=== PATIENT | male | born 1970 | race Caucasian/White ===

== ENCOUNTER 2019-05-14 10:03 | Emergency (ER) | payer OTHER, SELFPAY ==
[2019-05-14 10:17] VITALS: BP 134/97; PULSE 79; RESP 18; TEMP 36.7; O2SAT 98
[2019-05-14 10:28] VITALS: BP 134/97; PULSE 79; RESP 18; TEMP 36.9; O2SAT 98
--- NOTE | 2019-05-14 10:31 | ED.EYEPROB ---
HPI - Eye Problem General Chief complaint: Eye Problems Stated complaint: right eye red Time Seen by Provider: 05/14/19 10:15 Source: patient Limitations: no limitations History of Present Illness HPI Narrative: Camilla Farooq is a 48 yo male with no PMH who comes to the [facility] care with right eye pain after putting contact wool cleaner into his eye yesterday. He admits that he did not flush his eye well after this occurred and went ahead and put his contacts in. States his eye has been tearing since he took his contacts out last night and is having pain and swelling of the other side of the eyelid Related Data Home Medications Medication Instructions Recorded Confirmed lisinopril 20 mg DAILY 05/14/19 05/14/19 Allergies Allergy/AdvReac Type Severity Reaction Status Date / Time No Known Allergies Allergy Verified 05/14/19 10:22 Review of Systems Review of Systems: Narrative: CONSTITUTIONAL: Denies fever, chills, sweats. EYES: Denies visual changes, has redness, eyelid swelling, no discharge. ENT: Denies rhinorrhea, congestion, sore throat, otalgia. CARDIOVASCULAR: Denies chest pain, palpitations, edema. RESPIRATORY: Denies dyspnea, wheezing, cough GASTROINTESTINAL: Denies abdominal pain, nausea, vomiting, diarrhea. GENITOURINARY: Denies dysuria, hematuria, abnormal discharge SKIN: Denies rash or itching. MUSCULOSKELETAL: Denies acute back pain, joint pain, or myalgia. NEUROLOGIC: Denies numbness, or focal weakness. PSYCHIATRIC: Denies anxiety or depression. PMFSH Family History Family History (Updated 05/14/19 @ 10:34 by Leann Resendiz CNP) Other Hypertension Social History Social History (Updated 05/14/19 @ 10:36 by Leann Resendiz CNP) Smoking status: Never smoker Alcohol intake: current Gender identity (if verbalized by the patient): Male Comments At time of signature, I agree with nursing past medical, surgical, social and family history. There is no relevant family history pertinent to the presenting complaint. Exam Narrative: Exam Narrative: GENERAL: This is a well-nourished, well-developed patient, in no apparent distress. HEAD: normocephalic, atraumatic. EYES: Sclera clear/white on L, Injected on R with outer canthus lid edema Vision is grossly intact. EARS: External ears normal,Hearing grossly intact. NOSE: External nose normal with no obvious nasal discharge, nares without redness, no rhinorrhea. THROAT: Mucous membranes moist, posterior pharynx clear. NECK: Neck supple, non-tender CARDIOVASCULAR: Regular rate and rhythm without murmurs, gallops, or rubs. RESPIRATORY: Clear to auscultation. Breath sounds equal bilaterally. No wheezes, rales, or rhonchi. GASTROINTESTINAL: Abdomen soft, non-tender, SKIN: warm, intact with no suspicious lesions or rash, good texture and turgor. NEURO: awake, alert, and oriented to person, place and time. There were no obvious focal neurologic abnormalities. Steady gait EXTREMITIES: Normal range of motion. No edema. No calf tenderness. Negative Homans sign bilaterally. BACK: Nontender without deformity or crepitance. No flank tenderness. Course Course Emergency Course: Wood lamp exam Started on eye antibiotic Vital Signs Vital signs: Vital Signs Temperature 98.1 F 05/14/19 10:17 Pulse Rate 79 05/14/19 10:17 Respiratory Rate 18 05/14/19 10:17 Blood Pressure 134/97 H 05/14/19 10:17 Pulse Oximetry 98 05/14/19 10:17 Temperature 98.5 F 05/14/19 10:28 Pulse Rate 79 05/14/19 10:28 Respiratory Rate 18 05/14/19 10:28 Blood Pressure 134/97 H 05/14/19 10:28 Pulse Oximetry 98 05/14/19 10:28 Procedures Other Procedure Procedure 1: Other Procedure: So lamp with tetracaine and fluorescein stain - small corneal abrasion lateral to iris. MDM - Eye Problem Differential Diagnosis Differential diagnosis: Likely corneal abrasion, periorbital cellulitis and corneal ulcer Discharge Plan Discharge Clin
== END 2019-05-14 10:47 | disposition home or self-care (01) ==
PROVIDERS: Emergency Provider Nurse Practitioner; PCP Family Medicine
DX: S05.01XA Injury of conjunctiva and corneal abrasion without foreign body, right eye, initial encounter (principal); X58.XXXA Exposure to other specified factors, initial encounter; I10 Essential (primary) hypertension
CPT/HCPCS: 99203; A9270; G0463

== ENCOUNTER 2019-08-10 11:44 | Emergency (ER) | payer OTHER, SELFPAY ==
--- NOTE | ~2019-08-10 | XR_ITS ---
XR toe 1st RT min 2V 08/10/2019 12:24 Indication: Injury to the right great toe Procedure: 4 views right first toe Comparison: 03/16/2006 Findings: There is a nondisplaced tuft fracture right first distal phalanx. Soft tissue swelling. Mil d degenerative changes of the first IP joint. Lisfranc joint intact.. Impression: 1: Nondisplaced tuft fracture right first distal phalanx. Reviewed, dictated and finalized at location A. Impression: 1: Nondisplaced tuft fracture right first distal phalanx.
[2019-08-10 11:52] VITALS: BP 132/90; PULSE 86; RESP 18; TEMP 36.9; O2SAT 97
--- NOTE | 2019-08-10 12:05 | ED.GENADULT ---
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 Patient presents per private vehicle in no distress and has not taken anything for his symptoms. Patient denies any radicular symptoms or paresthesias Related Data Home Medications Medication Instructions Recorded Confirmed lisinopril 20 mg DAILY 05/14/19 05/14/19 Allergies Allergy/AdvReac Type Severity Reaction Status Date / Time aspirin Allergy Intermediate NAUSEA Verified 08/10/19 11:56 rosuvastatin Allergy Unknown Unknown Verified 08/10/19 11:56 Review of Systems Review of Systems: Narrative: CONSTITUTIONAL: Denies fever, chills, or sweats. SKIN: Positive for laceration. 2 cm laceration along the medial aspect of the distal right great toe partially involving the lateral nail bed distally MUSCULOSKELETAL: Positive for right toe pain NEUROLOGIC: Denies numbness, or weakness. PMFSH Social History Social History Smoking status: Never smoker Alcohol intake: current Gender identity (if verbalized by the patient): Male Exam Narrative: Exam Narrative: GENERAL: Well-appearing, well-nourished, and in no acute distress. HEAD: Normocephalic, atraumatic. EYES: PERRLA and EOMI. ENT: Nares clear, no rhinorrhea or epistaxis. Mucous membranes moist. EXTREMITIES: Normal range of motion. No edema. 2 cm laceration of the distal right great toe located medially extending from the distal aspect of the dorsal surface along the medial aspect of the nailbed distally SKIN: Warm, dry, no rash. NEURO: No focal deficits. Alert and oriented x3. Neurovascularly intact. Capillary refill less than 2 seconds PSYCH: Normal mood and affect. Course Course Emergency Course: Patient in the room in no distress aware of case findings treatment plan and diagnosis agreeing to follow-up as directed. Patient will be followed by orthopedic surgery. Post closure of the wound patient was placed in postop shoe with crutches Consultations Consultation #1: Spoke with orthopedic surgery Dr. crow who is agreed to follow the case Vital Signs Vital signs: Vital Signs Temperature 98.4 F 08/10/19 11:52 Pulse Rate 86 08/10/19 11:52 Respiratory Rate 18 08/10/19 11:52 Blood Pressure 132/90 08/10/19 11:52 Pulse Oximetry 97 08/10/19 11:52 Temperature 98.4 F 08/10/19 11:52 Pulse Rate 86 08/10/19 11:52 Respiratory Rate 18 08/10/19 11:52 Blood Pressure 132/90 08/10/19 11:52 Pulse Oximetry 97 08/10/19 11:52 Procedures Laceration Laceration 1: Date: 08/10/19 Time: 14:32 Site: lower extremity Side (If applicable): right Size (cm): 2 Description: linear Depth: simple, single layer Local Anesthetic: lidocaine 1% Pre-repair: wound explored, irrigated and irrigated extensively ====== Skin Level ====== Skin layer closed with: vicryl Size (cm): 4-0 Number of sutures: 5 Technique: simple, interrupted ====== Subcutaneous Layer ====== ====== Muscle Layer ====== ====== Tendon Layer ====== Medical Decision Making MDM Narrative Medical decision making narrative: Patients injury or pain is consistent with musculoskeletal etiology. No signs of neurological or vascular compromise on exam. Compartments and tisues are soft without signs of compartment syndrome. Pain is felt appropriate for further evaluation on an outpatient basis. Patient's wound was closed in the emergency
[2019-08-10] MEDS: ceFAZolin SODIUM 1 GM VIAL IM (12:11)
[2019-08-10] MEDS: WATER, STERILE FOR INJECTION 10 ML VIAL XX (12:12)
[2019-08-10] MEDS: TETANUS,DIPHTHERIA,AC PERTUSSIS ADULT (0.5 ML) BOOSTRIX IM (12:45)
[2019-08-10 14:50] VITALS: BP 141/109; PULSE 76; RESP 16; TEMP 36.2; O2SAT 97
== END 2019-08-10 14:54 | disposition home or self-care (01) ==
PROVIDERS: Emergency Provider Emergency Medicine; PCP Family Medicine
DX: S92.424B Nondisplaced fracture of distal phalanx of right great toe, initial encounter for open fracture (principal); W28.XXXA Contact with powered lawn mower, initial encounter; Z23 Encounter for immunization
CPT/HCPCS: 12001; 73660; 90471; 90715; 96372; 99284; A9270; J0690

== ENCOUNTER 2019-12-08 18:58 | Inpatient (IN) | payer OTHER, SELFPAY ==
[2019-12-08 18:59] VITALS: BP 108/66; PULSE 104; RESP 18; TEMP 36.1; O2SAT 98
--- NOTE | 2019-12-08 19:30 | ED.GENADULT ---
HPI - General Adult General Chief complaint: Unspecified Stated complaint: heat exhaustion Time Seen by Provider: 12/08/19 19:06 History of Present Illness HPI narrative: Patient is a 49-year-old male who presents the ER with muscle cramping. Began today. Worsens with any type of movement. Believes it is related to heat exposure. 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 He tries stay hydrated. He has had this happen previously and improved with IV fluid. Reports significant spasms of the hands and fingers as well. No alleviating factors at this time. Related Data Home Medications Medication Instructions Recorded Confirmed lisinopril 20 mg DAILY 05/14/19 09/13/19 Allergies Allergy/AdvReac Type Severity Reaction Status Date / Time aspirin AdvReac Intermediate NAUSEA Verified 12/08/19 20:59 Review of Systems Review of Systems: All systems reviewed & are unremarkable except as noted in HPI and below Constitutional: Constitutional: Denies chills, Denies fever(s) and Denies weakness ENT: Denies nasal congestion and Denies sore throat Respiratory: Respiratory: Denies cough, Denies dyspnea and Denies wheezing Gastrointestinal: Gastrointestinal: Denies abdominal pain, Denies nausea and Denies vomiting Musculoskeletal: Musculoskeletal: Denies myalgias and Reports muscle cramps PMFSH Past Medical History Medical History (Updated 12/08/19 @ 20:59 by Edgard Robles MD) Anxiety Arthritis Left hip impingement syndrome Vision abnormalities Surgical History Surgical History History of appendectomy History of carpal tunnel release Social History Social History Smoking status: Never smoker Alcohol intake: current Drinks per week: 1 Additional occupation/education comments: [employer] Gender identity (if verbalized by the patient): Male Exam Narrative: Exam Narrative: GENERAL: Well-appearing, well-nourished, and in no acute distress. HEAD: Normocephalic, atraumatic. CHEST: Clear to auscultation. No respiratory distress. HEART: Regular rate and rhythm. Normal peripheral pulses. ABDOMEN: Soft, nontender, nondistended. EXTREMITIES: Normal range of motion. No edema. Begins cramping when going from laying to sitting and when going from sitting to standing. SKIN: Warm, dry, no rash. NEURO: Alert and oriented x3. PSYCH: Normal mood and affect. Course Course Emergency Course: Cramping improved with Valium. Informed results. Admit to hospitalist service. Vital Signs Vital signs: Vital Signs Temperature 97.0 F L 12/08/19 18:59 Pulse Rate 104 H 12/08/19 18:59 Respiratory Rate 18 12/08/19 18:59 Blood Pressure 108/66 12/08/19 18:59 Pulse Oximetry 98 12/08/19 18:59 Temperature 97.0 F L 12/08/19 18:59 Pulse Rate 97 12/08/19 20:26 Respiratory Rate 12 12/08/19 20:26 Blood Pressure 129/93 H 12/08/19 20:26 Pulse Oximetry 100 12/08/19 20:26 Medical Decision Making Vital Signs Vital Signs: Vital Signs Temperature 97.0 F L 12/08/19 18:59 Pulse Rate 104 H 12/08/19 18:59 Respiratory Rate 18 12/08/19 18:59 Blood Pressure 108/66 12/08/19 18:59 Pulse Oximetry 98 12/08/19 18:59 Temperature 97.0 F L 12/08/19 18:59 Pulse Rate 97 12/08/19 20:26 Respiratory Rate 12 12/08/19 20:26 Blood Pressure 129/93 H 12/08/19 20:26 Pulse Oximetry 100 12/08/19 20:26 Lab Data Result diagrams: 12/08/19 19:40 12/08/19 19:40 Labs: Lab Results 12/08/19 12/08/19 Range/Units 19:40 19:40 WBC 14.5 H (4.5-10.0) K/mm3 RBC 4.93 (4.6-6.20) M/mm3 Hgb 15.1 (14.0-18.0) g/dL Hct 43.6 (42.0-52.0) % MCV 88.4 (80-100) fl MCH 30.6 (26-34) pg MCHC 34.6 (32-36) g/dl RDW 13.1 (11.5-14.5) % Plt Count 313 (150-375) k/mm3 MPV 9.4 (7.4-10.4) fl Immature Gran %
[2019-12-08] MEDS: SODIUM CHLORIDE 0.9% IV 1,000 ML 999 ML IV CONT ×3 (19:39→21:10)
[2019-12-08 19:47] LABS: Basophils Absolute Auto 0.1 K/mm3 (0.0-0.1); Basophils Percent Auto 0.4 % (0.2-1.2); Eosinophils Percent Auto 0.1 % (0-4.4); Hematocrit 43.6 % (42.0-52.0); Hemoglobin 15.1 g/dL (14.0-18.0); Immature Granulocyte Absolute 0.07 K/mm3 (0.00-0.031); Immature Granulocyte Percent A 0.5 % (0-0.5); Lymphocytes Absolute Auto 1.66 K/mm3 (0.9-3.2); Lymphocytes Percent Auto 11.5 % (18.3-44.2); Mean Corpuscular HGB Conc 34.6 g/dl (32-36); Mean Corpuscular Hemoglobin 30.6 pg (26-34); Mean Corpuscular Volume 88.4 fl (80-100); Mean Platelet Volume 9.4 fl (7.4-10.4); Monocytes Absolute Auto 1.3 K/mm3 (0.1-0.6); Monocytes Percent Auto 8.7 % (2.6-8.5); Neutrophils Absolute Auto 11.4 K/mm3 (1.3-6.7); Neutrophils Percent Auto 78.8 % (45.5-73.1); Platelet Count Result 313 k/mm3 (150-375); Red Blood Count 4.93 M/mm3 (4.6-6.20); Red Cell Distribution Width 13.1 % (11.5-14.5); White Blood Count 14.5 K/mm3 (4.5-10.0)
[2019-12-08 19:58] LABS: Anion Gap 13 mmol/L (8-16); Blood Urea Nitrogen 22 mg/dL (9-20); Calcium 10.1 mg/dL (8.4-10.2); Carbon Dioxide 21 mmol/L (22-30); Chloride 98 mmol/L (98-107); Creatine Kinase 1091 U/L (55-170); Estimated CRCL calculation 47 ml/min; Estimated Glomerular Filt Rate 29; Glucose 106 mg/dL (75-110); Magnesium 2.2 mg/dL (1.6-2.3); Potassium 5.1 mmol/L (3.4-5.0); Sodium 132 mmol/L (137-145)
[2019-12-08 20:26] VITALS: BP 129/93; PULSE 97; RESP 12; O2SAT 100
[2019-12-08 21:52] VITALS: BP 137/88; PULSE 88; RESP 19; O2SAT 99
[2019-12-08 22:00] VITALS: BP 128/80; PULSE 97; RESP 20; TEMP 36.7; O2SAT 87
--- NOTE | 2019-12-08 22:00 | PC.NURSE ---
This patient, Denzel Farooq, was admitted to 2 Medical Room 251-. Patient/family oriented to hospital policies and general routines including ID bracelet, bed and alarms, visiting hours, pain management, procedures, bathroom and other care routines, personal items, smoking policy, room service/diet, and visiting hours. Valuables list has been completed. Information on how to activate the Rapid Response Team has been discussed. Patient/Family are encouraged to report perceived risks to care and to ask questions if they do not understand what they are told or what they should do.
[2019-12-08] MEDS: SODIUM CHLORIDE 0.9% IV 1,000 ML 150 ML IV CONT (22:27)
[2019-12-08 23:23] VITALS: BMI 34.1
[2019-12-09 04:00] VITALS: BP 135/85; PULSE 80; RESP 18; TEMP 36.6; O2SAT 100
[2019-12-09] MEDS: SODIUM CHLORIDE 0.9% IV 1,000 ML 150 ML IV CONT ×3 (05:03→18:44)
[2019-12-09 06:01] LABS: Hematocrit 39.2 % (42.0-52.0); Hemoglobin 13.3 g/dL (14.0-18.0); Mean Corpuscular HGB Conc 33.9 g/dl (32-36); Mean Corpuscular Hemoglobin 30.6 pg (26-34); Mean Corpuscular Volume 90.1 fl (80-100); Mean Platelet Volume 9.6 fl (7.4-10.4); Platelet Count Result 241 k/mm3 (150-375); Red Blood Count 4.35 M/mm3 (4.6-6.20); Red Cell Distribution Width 13.1 % (11.5-14.5); White Blood Count 8.2 K/mm3 (4.5-10.0)
[2019-12-09 08:04] LABS: Anion Gap 6 mmol/L (8-16); Blood Urea Nitrogen 16 mg/dL (9-20); Calcium 8.2 mg/dL (8.4-10.2); Carbon Dioxide 24 mmol/L (22-30); Chloride 105 mmol/L (98-107); Creatine Kinase 1013 U/L (55-170); Estimated CRCL calculation 99 ml/min; Estimated Glomerular Filt Rate > 60; Glucose 99 mg/dL (75-110); Potassium 4.1 mmol/L (3.4-5.0); Sodium 135 mmol/L (137-145)
--- NOTE | 2019-12-09 10:22 | PM.IMHP ---
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 Symptoms started Friday and progressed to the point that he could barely ambulate yesterday due to severe pain. 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 He reports that he tried to stay hydrated yesterday and drank four jugs of water but had very minimal urine output and only urinated dark urine one time. He endorsed significant fatigue as well. Initial workup in the emergency department revealed WBC 14,500, Hb 15.1, Hct 43.6, platelets 313, sodium 132, potassium 5.1, chloride 98, CO2 21, BUN 22, Cr 2.4, magnesium 2.2, calcium 10.1, glucose 106, and creatine kinase 1091. He was treated with IV fluids and admitted to the hospitalist service for further treatment of rhabdomyolysis. He reports that he is feeling much better today. He reports that his spasms have resolved. At this time, he has diffuse muscle aching. He has no other complaints. He is not on a statin and reports that this was previously discontinued. He reports marijuana use but denies other illicit substance use. He denies snake and insect bites and has no other known toxin exposure. He denies recent infection. He denies trauma. He reports that his other episodes of rhabdomyolysis were attributed to dehydration and were associated with working in the heat. He has no other complaints. Review of Systems Review of Systems: Narrative: Constitutional: Denies fever, chills, and appetite change. Reports fatigue with onset of other sx which is improving. Eyes: Denies vision change. No additional eye complaints. ENT: Denies change in hearing, nasal congestion, dysphagia, odynophagia, and sore throat. Cardiovascular: Denies palpitations and chest pain. Denies dyspnea on exertion. Respiratory: Denies cough and shortness of breath. Gastrointestinal: Denies abdominal pain and vomiting. Reports nausea yesterday which has resolved. Genitourinary: Denies dysuria, frequency, urgency, and hesitancy. Musculoskeletal: Reports diffuse muscle aches. Spasms previously have resolved. Skin: Denies lesions and wounds. Neurologic: Denies focal weakness, paresthesias, confusion, headache, and speech change. Psychiatric: Denies mood change. Reports anxiety and depression but is not on medication. Hematologic: Denies easy bruising and bleeding. All systems reviewed & are unremarkable except as noted in HPI and below PMFSH Past Medical History Medical History (Updated 12/09/19 @ 10:42 by Ivania Fields PA-C) Anxiety Arthritis Depression HTN (hypertension) Left hip impingement syndrome Rhabdomyolysis Vision abnormalities Surgical History Surgical History History of appendectomy History of carpal tunnel release History of mandibular surgery Family History Family History Grandparent Cerebrovascular accident Congestive heart failure Grandparent Chronic obstructive pulmonary disease Congestive heart failure Diabetes mellitus Father Hypertension Social History Social History (Updated 12/09/19 @ 10:39 by Ivania Fields PA-C) Social History: Mr. Farooq lives at home in [place] with his and two daughters. 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 He smokes marijuana approximately 3-4x per week and reports that he uses this for pain relief. He reports alcohol use 1-2x per year. He denies other illicit substance and tobacco use. He wishes to be a full code and has designated his , Felipa Farooq, as his designated surrogate decision maker. Smoking status: Never smoker Alcohol intake: never Drinks pe
[2019-12-09 13:31] VITALS: BP 132/78; PULSE 86; RESP 16; TEMP 36.4; O2SAT 98
[2019-12-09] MEDS: ENOXAPARIN 40 MG/0.4 ML SYRINGE SUB-Q (20:06)
[2019-12-09 22:00] VITALS: BP 140/86; PULSE 73; RESP 20; TEMP 36.2; O2SAT 98
[2019-12-10] MEDS: SODIUM CHLORIDE 0.9% IV 1,000 ML 150 ML IV CONT ×2 (04:24→11:16)
[2019-12-10 06:00] VITALS: BP 126/73; PULSE 67; RESP 20; TEMP 36.7; O2SAT 98
[2019-12-10 06:16] LABS: Potassium 4.2 mmol/L (3.4-5.0)
[2019-12-10 07:23] LABS: Alanine Aminotransferase 28 U/L (4-50); Albumin Level 3.4 g/dL (3.5-5.1); Alkaline Phosphatase 42 U/L (38-126); Anion Gap 5 mmol/L (8-16); Aspartate Amino Transferase 33 U/L (17-59); Bilirubin,Total 0.3 mg/dL (0.2-1.3); Blood Urea Nitrogen 12 mg/dL (9-20); Calcium 7.9 mg/dL (8.4-10.2); Carbon Dioxide 24 mmol/L (22-30); Chloride 108 mmol/L (98-107); Creatine Kinase 636 U/L (55-170); Estimated CRCL calculation 133 ml/min; Estimated Glomerular Filt Rate > 60; Glucose 99 mg/dL (75-110); Sodium 137 mmol/L (137-145)
[2019-12-10 07:56] LABS: Erythrocyte Sedimentation Rate 8 mm/hr (0-20)
--- NOTE | 2019-12-10 12:13 | PM.IMPN ---
Progress Note: A&P Assessment and Plan (1) Rhabdomyolysis: Code(s): M62.82 - Rhabdomyolysis Status: Acute Assessment and Plan: The patient reports a hx of rhabdomyolysis 4x in the past 10 years. He reports that prior episodes were non-traumatic and associated with exertion/heat exhaustion. 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 CK was elevated at 1080 at admission and has improved to 636 with IV hydration. Check TSH. Labs were ordered to evaluate for metabolic myopathies due to recurrence (aldolase, NAVDEEP, EMMANUEL-1Ab, FRONT END SOFTWARE ENGINEER Ab). Continue IV fluid rehydration and analgesics PRN for pain. Repeat CK tomorrow. (2) Acute kidney injury: Code(s): N17.9 - Acute kidney failure, unspecified Status: Resolved Assessment and Plan: Resolved. Cr at admission was 2.4, likely secondary to rhabdomyolysis. Cr has normalized to 0.8. (3) HTN (hypertension): Code(s): I10 - Essential (primary) hypertension Status: Chronic Assessment and Plan: Blood pressures were reviewed and are well-controlled. Lisinopril is on hold at this time due to ROB. Plan to resume lisinopril. Continue to monitor. (4) Hyperkalemia: Code(s): E87.5 - Hyperkalemia Status: Resolved Assessment and Plan: Potassium was 5.1 at admission. Hyperkalemia has resolved. This is secondary to ROB which has resolved. Continue to monitor. (5) Hyponatremia: Code(s): E87.1 - Hypo-osmolality and hyponatremia Status: Resolved Assessment and Plan: Resolved. Sodium was 132 at admission and has improved to 137. This was likely secondary to rhabdomyolysis/dehydration. Continue to monitor. Subjective Date/time seen: 12/10/19 12:13 Interval history: Mr. Farooq is seen in follow-up for rhabdomyolysis. He reports improvement in his muscle aches. 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 He has a good appetite. He denies nausea and vomiting. He denies shortness of breath and chest pain. He has no other concerns. Review of Systems Review of Systems: All systems reviewed & are unremarkable except as noted in HPI and below Exam Narrative: Exam Narrative: General: Pleasant, cooperative, well-developed 49 y.o. male lying in the semi-alvarez position in bed in no acute distress. HEENT: Normocephalic and atraumatic. Sclera anicteric. Right conjunctivae with pinguecula. EOMI. Moist mucous membranes. Neck: Supple without lymphadenopathy or masses. Cardiac: Regular rate and rhythm. S1 and S2 normal. Lungs: Lungs are clear to auscultation bilaterally. Abdomen: Bowel sounds are normoactive. Abdomen is soft, non-distended, and non-tender. Musculoskeletal: No joint inflammation. No spasms appreciated or signs of compartment syndrome. Extremities: Lower extremities are non-edematous. Renee sign is negative. DP and PT are 2+ bilaterally. Neurological: Alert. Exam is non-focal to casual conversation. Speech is clear. Skin: Warm and dry. No lesions or eruptions. Psychiatric: Judgment and insight intact. Pleasant mood and appropriate affect. Objective Data Vital Signs Vital Signs: Vital Signs - 24 hr 12/09/19 13:31 12/09/19 22:00 12/10/19 06:00 Temperature 97.6 F 97.2 F L 98.0 F Pulse Rate 86 73 67 Respiratory Rate 16 20 20 Blood Pressure 132/78 140/86 126/73 Pulse Oximetry 98 98 98 Intake/Output Intake/Output: Intake & Output 12/07/19 12/08/19 12/09/19 12/10/19 23:59 23:59 23:59 23:59 Intake Total 1999 5502 3090 Output Total 1875 1100 Balance 1999 3695 1989 Meds/Results Medications: Active Medications Generic Name Dose Route Start Last Admin Trade Name Freq PRN Reason Stop Dose Admin Acetaminophen 650 mg 12/08/19 20:52 Tylenol Tablet PO Q4H PRN Mild Pain (1-3) or Fever Hydrocodone Bitart/Acetaminophen 1 tab 12/08/19 20:52 12/09/19 20:12 [place] 5-325 Mg PO 1 tab Q4H PRN Adminis
[2019-12-10 14:00] VITALS: BP 147/94; PULSE 75; RESP 18; TEMP 36.2; O2SAT 99
[2019-12-10] MEDS: LIDOCAINE 5% PATCH 1 PATCH TRANSDERM (17:40)
[2019-12-10] MEDS: SODIUM CHLORIDE 0.9% IV 1,000 ML 125 ML IV CONT (20:12)
[2019-12-10] MEDS: ENOXAPARIN 40 MG/0.4 ML SYRINGE SUB-Q (20:13)
[2019-12-10 22:00] VITALS: BP 149/84; PULSE 73; RESP 18; TEMP 36.4; O2SAT 100
[2019-12-11 05:54] VITALS: BP 147/83; PULSE 64; RESP 16; TEMP 36.2; O2SAT 99
[2019-12-11 06:07] LABS: Anion Gap 6 mmol/L (8-16); Blood Urea Nitrogen 7 mg/dL (9-20); Calcium 8.3 mg/dL (8.4-10.2); Carbon Dioxide 23 mmol/L (22-30); Chloride 108 mmol/L (98-107); Creatine Kinase 397 U/L (55-170); Estimated CRCL calculation 151 ml/min; Estimated Glomerular Filt Rate > 60; Glucose 100 mg/dL (75-110); Sodium 137 mmol/L (137-145)
[2019-12-11] MEDS: SODIUM CHLORIDE 0.9% IV 1,000 ML 125 ML IV CONT (06:07)
[2019-12-11] MEDS: lisinopriL 20 MG TABLET PO (08:15)
--- NOTE | 2019-12-11 09:22 | PM.DS ---
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 He works in the heat and was very dehydrated with minimal urine output. Initial workup in the emergency department revealed WBC 14,500, Hb 15.1, Hct 43.6, platelets 313, sodium 132, potassium 5.1, chloride 98, CO2 21, BUN 22, Cr 2.4, magnesium 2.2, calcium 10.1, glucose 106, and creatine kinase elevated at 1091. The patient reports a hx of rhabdomyolysis 4x in the past 10 years. He reports that prior episodes were non-traumatic and associated with exertion/heat exhaustion. 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 CK was elevated at 1080 at admission and has improved to 397 with IV fluid hydration. TSH was normal. Aldolase, NAVDEEP, Treasure-1 Ab and FUR REMODELER Ab were ordered to evaluate for possible metabolic myopathy due to hx of recurrence and are pending. He had hyperkalemia initially due to ROB. His ROB resolved with IV fluid rehydration with Cr 0.7 the day of discharge. Hyponatremia was felt to be due to hypovolemia and resolved with IV fluid hydration. His myalgias and spasms resolved and he is feeling much better. He requests to go home. I have discussed the importance of avoiding heat exhaustion and staying hydrated. I have encouraged him to rest for a few days before returning to work. He was discharged in stable condition on the morning of 12/11/19. (2) Acute kidney injury: Code(s): N17.9 - Acute kidney failure, unspecified Status: Resolved Assessment and Plan: Resolved. Cr at admission was 2.4, likely secondary rhabdomyolysis/dehydration. Cr normalized and is 0.7 today. (3) HTN (hypertension): Code(s): I10 - Essential (primary) hypertension Status: Chronic Assessment and Plan: Blood pressures were reviewed and were well-controlled. Lisinopril was continued. (4) Hyperkalemia: Code(s): E87.5 - Hyperkalemia Status: Resolved Assessment and Plan: Resolved. Potassium was 5.1 at admission. This is secondary to ROB which has resolved. (5) Hyponatremia: Code(s): E87.1 - Hypo-osmolality and hyponatremia Status: Resolved Assessment and Plan: Resolved. Sodium was 132 at admission and normalized following IV fluid rehydration. This is likely secondary to hypovolemia from rhabdomyolysis and dehydration. DS: Summary Time Spent with Patient Time attestation: Total time spent providing and/or coordinating discharge services: Exam Narrative: Exam Narrative: Vitals at presentation: Temp Pulse Resp BP Pulse Ox 97.0 F L 104 H 18 108/66 98 12/08/19 18:59 12/08/19 18:59 12/08/19 18:59 12/08/19 18:59 12/08/19 18:59 Vitals at discharge: Temp Pulse Resp BP Pulse Ox 97.1 F L 64 16 147/83 H 99 12/11/19 05:54 12/11/19 05:54 12/11/19 05:54 12/11/19 05:54 12/11/19 05:54 General: Pleasant and cooperative, well-developed 49 y.o. male lying in the semi-recumbent position in bed in no acute distress. HEENT: Normocephalic and atraumatic. EOMI. Oral mucosa moist. Neck: Supple. Cardiac: RRR. S1 and S2 normal. Lungs: Lungs clear to auscultation bilaterally. Abdomen: Bowel sounds are normoactive. Abdomen is soft, non-distended, and non-tender. Extremities: Lower extremiti
[2019-12-12 09:32] LABS: JO 1 Antibody <1.0
[2019-12-15 22:33] LABS: RNP Antibodies <1.0
[2019-12-16 01:04] LABS: Aldolase 5.7 U/L (<=8.1)
== END 2019-12-11 10:16 | disposition home or self-care (01) | DRG 558 ==
LOC: ANHED 21:00 → ANH2MED 22:06
PROVIDERS: Physician Assistant; Admitting Provider Internal Medicine; Emergency Provider Emergency Medicine; PCP Family Medicine; Visit Provider Internal Medicine
DX: M62.82 Rhabdomyolysis (principal); N17.9 Acute kidney failure, unspecified; E87.1 Hypo-osmolality and hyponatremia; M19.90 Unspecified osteoarthritis, unspecified site; I10 Essential (primary) hypertension; E86.0 Dehydration; E87.5 Hyperkalemia; F41.9 Anxiety disorder, unspecified; M25.852 Other specified joint disorders, left hip; X30.XXXA Exposure to excessive natural heat, initial encounter
CPT/HCPCS: 36415; 80048; 80053; 82085; 82550; 83735; 84443; 85025; 85027; 85652; 86038; 86235; 96361; 96374; 99285; A9270; J1650; J3360; J7030

== ENCOUNTER 2020-06-22 08:07 | Outpatient (CLI) | payer OTHER, SELFPAY ==
--- NOTE | 2020-06-22 | ECHO_ITS ---
Patient Info Name: Denzel Farooq Age: 50 years : 1970 Gender: Male Ht: 73 in Wt: 275 lbs BSA: 2.58 m2 HR: 58 bpm BP: 133 / 90 mmHg Heart Rhythm: Sinus Rhythm Technical Quality: Good Exam Date: 06/22/2020 8:56 AM Exam Location: [facility] Patient Status: Outpatient Admit Date: 06/22/2020 Staff Ordering Physician: Deuce, Yulissa Reddy NP Steam Shovelman: Miesha Price RDCS Attending Provider: GeorgeYulissa NP Referring Physician: Deuce ROBLERO; Exam Type: CA echo doppler color flow Study Info Indications - family hx/o congenital hrt dz Complete two-dimensional, color flow and Doppler transthoracic echocardiogram is performed. Summary 1. Complete two-dimensional, color flow and Doppler transthoracic echocardiogram is performed. 2. Left ventricular chamber dimension is mildly enlarged. 3. Left ventricular systolic function is mildly reduced, estimated at 45-50%. 4. There is mildly increased left ventricular wall thickness. 5. The left ventricular diastolic function is grade I diastolic dysfunction. 6. Left atrial chamber dimension is mildly enlarged. 7. There is mild tricuspid valve regurgitation. Left Ventricle Left ventricular chamber dimension is mildly enlarged. Left ventricular systolic function is mildly reduced, estimated at 45-50%. There is mildly increased left ventricular wall thickness. The left ventricular diastolic function is grade I diastolic dysfunction. Right Ventricle Right ventricular chamber dimension is normal. Right ventricular systolic function is normal. Left Atria Left atrial chamber dimension is mildly enlarged. Right Atria Right atrial chamber dimension is normal. Atrial Septum Intact interatrial septum visualized by color flow imaging. Aortic Valve The aortic valve is trileaflet. There is mild aortic valve sclerosis. There is no aortic valve stenosis. There is trace aortic valve regurgitation. Pulmonic Valve The pulmonic valve is normal. There is no pulmonic valve stenosis. There is trace pulmonic regurgitation. Mitral Valve The mitral valve has normal leaflets. There is no mitral valve stenosis. There is trace mitral valve regurgitation. Tricuspid Valve The tricuspid valve leaflets are normal. There is no significant tricuspid valve stenosis. There is mild tricuspid valve regurgitation. No pulmonary hypertension, estimated pulmonary arterial systolic pressure is 17 mmHg. Pericardium/Pleural The pericardium appears normal. There is no pericardial effusion. Inferior Vena Cava Normal inferior vena cava with >50% collapse upon inspiration consistent with normal right atrial pressure, 10 mmHg. Aorta The aortic root size at the sinus of Valsalva is normal. The prox ascending aorta size is normal. Left Ventricular Outflow Tract Name Value Normal LVOT 2D LVOT Diameter 2.2 cm LVOT Doppler LVOT Peak Gradient 4 mmHg LVOT Mean Gradient 3 mmHg LVOT VTI 22 cm LVOT VTI/AV VTI Ratio 0.7
--- NOTE | ~2020-06-22 | XR_ITS ---
EXAMINATION: XR shoulder LT min 2V DATE: 06/22/2020 09:40 INDICATION: Chronic left shoulder pain. TECHNIQUE: 4 views of left shoulder were obtained. COMPARISON: None. FINDINGS: Bone alignment is normal. There is an old healed fracture of distal clavicle. Glenohumeral joint is normal. There is mild acromioclavicular joint osteoarthritis. IMPRESSION: 1. Mild acromioclavicular joint osteoarthritis. Reviewed, dictated and finalized at location A. Y LEVEL PROJECT ENGINEER
--- NOTE | ~2020-06-22 | XR_ITS ---
EXAMINATION: XR hip BI wo pelvis DATE: 06/22/2020 09:40 INDICATION: Bilateral hip pain. TECHNIQUE: 2 views of right hip and 2 views of left hip were obtained. COMPARISON: Pelvis and left hip radiographs 09/13/2019 FINDINGS: Bone alignment is normal. No fracture. Joint spaces are normal. IMPRESSION: 1. No significant arthritis. Reviewed, dictated and finalized at location A. MACIST ASSISTANT
== END 2020-06-22 08:08 | disposition home or self-care (01) ==
PROVIDERS: PCP Family Medicine; Visit Provider Nurse Practitioner
DX: Z82.79 Family history of other congenital malformations, deformations and chromosomal abnormalities (principal); M19.012 Primary osteoarthritis, left shoulder
CPT/HCPCS: 73030; 73521; 93306

== ENCOUNTER 2020-12-06 09:51 | Emergency (ER) | payer OTHER, SELFPAY ==
[2020-12-06] VITALS (9 sets, daily range): BP systolic 129–146; BP diastolic 76–91; PULSE 57–71; RESP 18–29; TEMP 36.4; O2SAT 90–100
--- NOTE | 2020-12-06 09:58 | ED.CHESTPAIN ---
HPI - Chest Pain General Chief Complaint: Unspecified Stated Complaint: Dehydration Time Seen by Provider: 12/06/20 09:52 Source: RN notes reviewed History of Present Illness HPI narrative: Patient presents to emergency department from home for dehydration. 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 he states that proximally 1 year ago he was admitted for 4 days for rhabdomyolysis and dehydration states that last night he began to feel diffuse cramping throughout his body which was similar to his previous symptom and felt he should come in for further evaluation he states he has been trying to hydrate he states today he feels sore but has no definitive cramping he denies any fevers or chills, chest pain, shortness of breath abdominal pain nausea vomiting or any other symptoms states he has been taking his medications as prescribed Related Data Home Medications Medication Instructions Recorded Confirmed meloxicam [Mobic] 15 mg PO DAILY 12/08/19 12/08/19 losartan 100 mg tablet 100 mg PO DAILY 06/29/20 metoprolol succinate 25 mg 25 mg PO DAILY 06/29/20 tablet,extended release 24 hr tramadol 50 mg tablet 50 mg PO Q6H PRN 06/29/20 multivit,calc,mins-folic 240 1 tablet PO DAILY 07/18/20 mcg-vit K1 30 mcg-lycopene 300 mcg tablet Allergies Allergy/AdvReac Type Severity Reaction Status Date / Time aspirin AdvReac Intermediate NAUSEA Verified 12/06/20 09:59 Review of Systems Review of Systems: Gen.: Denies fevers or chills ENT: Denies congestion Respiratory: Denies shortness of breath or cough CV: Denies chest pain or palpitations GI: Denies abdominal pain nausea, emesis or diarrhea Musculoskeletal: Reports muscle cramping Neuro: Denies numbness, tingling, weakness or focal weakness Skin: Denies rash Except as documented, all other systems reviewed and negative [facility] Past Medical History Medical History Anxiety Arthritis Depression HTN (hypertension) Left hip impingement syndrome Rhabdomyolysis Vision abnormalities Surgical History Surgical History History of appendectomy History of carpal tunnel release History of mandibular surgery Family History Family History Grandparent Cerebrovascular accident Congestive heart failure Grandparent Chronic obstructive pulmonary disease Congestive heart failure Diabetes mellitus Father Hypertension Social History Social History Social History: Mr. Farooq lives at home in [place] with his and two daughters. 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 He smokes marijuana approximately 3-4x per week and reports that he uses this for pain relief. He reports alcohol use 1-2x per year. He denies other illicit substance and tobacco use. He wishes to be a full code and has designated his , Felipa Farooq, as his designated surrogate decision maker. 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 CARDIOVASCULAR: Regular rate and rhythm without murmurs rubs or gallops. ABDOMINAL: Soft, nontender, nondistended, no rebound or guarding MUSCULOSKELETAl: Moves all extremities. No clubbing, cyanosis or edema. NEURO: Awake and alert. Following commands, speech normal, no focal deficits SKIN:: Warm, dry. No rashes lesions or abrasi
[2020-12-06 10:16] LABS: Basophils Absolute Auto 0.1 K/mm3 (0.0-0.1); Basophils Percent Auto 0.6 % (0.2-1.2); Eosinophils Absolute Auto 0.2 K/mm3 (0-0.3); Eosinophils Percent Auto 2.4 % (0-4.4); Hematocrit 42.4 % (42.0-52.0); Hemoglobin 14.2 g/dL (14.0-18.0); Immature Granulocyte Absolute 0.02 K/mm3 (0.00-0.031); Immature Granulocyte Percent A 0.2 % (0-0.5); Lymphocytes Absolute Auto 2.37 K/mm3 (0.9-3.2); Lymphocytes Percent Auto 28.7 % (18.3-44.2); Mean Corpuscular HGB Conc 33.5 g/dl (32-36); Mean Corpuscular Volume 92.6 fl (80-100); Mean Platelet Volume 9.5 fl (7.4-10.4); Monocytes Absolute Auto 0.8 K/mm3 (0.1-0.6); Monocytes Percent Auto 10.2 % (2.6-8.5); Neutrophils Absolute Auto 4.8 K/mm3 (1.3-6.7); Neutrophils Percent Auto 57.9 % (45.5-73.1); Platelet Count Result 269 k/mm3 (150-375); Red Blood Count 4.58 M/mm3 (4.6-6.20); Red Cell Distribution Width 13.1 % (11.5-14.5); White Blood Count 8.3 K/mm3 (4.5-10.0)
[2020-12-06] MEDS: SODIUM CHLORIDE 0.9% IV 1,000 ML 999 ML IV CONT ×2 (10:22→11:18)
[2020-12-06 10:30] LABS: Alanine Aminotransferase 32 U/L (4-50); Albumin Level 4.6 g/dL (3.5-5.1); Alkaline Phosphatase 56 U/L (38-126); Anion Gap 8 mmol/L (8-16); Aspartate Amino Transferase 35 U/L (17-59); Bilirubin,Total 0.4 mg/dL (0.2-1.3); Blood Urea Nitrogen 14 mg/dL (9-20); Calcium 9.3 mg/dL (8.4-10.2); Carbon Dioxide 25 mmol/L (22-30); Chloride 106 mmol/L (98-107); Creatine Kinase 307 U/L (55-170); Estimated CRCL calculation 150 ml/min; Estimated Glomerular Filt Rate > 60; Glucose 137 mg/dL (65-110); Magnesium 1.9 mg/dL (1.6-2.3); Sodium 139 mmol/L (137-145)
[2020-12-06 10:52] LABS: Add Urine Microscopic? YES; Appearance Urine Clear (Clear); Bilirubin Urine Negative (Negative); Blood Urine Negative (Negative); Color Urine Yellow (Yellow); Glucose Urine UA Negative (Negative); Ketones Urine Negative (Negative); Leukocyte Esterase Ur Negative LEU/UL (Negative); Mucus Urine Few /lpf; Nitrate Urine Negative (Negative); Protein Urine 1+ mg/dL (Negative); Specific Grav Ur 1.032 (1.001-1.035); Squamous Epithelial Cell Urine Rare /hpf (Few); WBC Urine 0-3 /hpf
== END 2020-12-06 12:19 | disposition home or self-care (01) ==
PROVIDERS: Emergency Provider Emergency Medicine; PCP Family Medicine
DX: E86.0 Dehydration (principal); R25.2 Cramp and spasm; F41.9 Anxiety disorder, unspecified; M19.90 Unspecified osteoarthritis, unspecified site; F32.9 Major depressive disorder, single episode, unspecified; I10 Essential (primary) hypertension
CPT/HCPCS: 36415; 80053; 81001; 82550; 83735; 85025; 96360; 96361; 99283; J7030

== ENCOUNTER 2021-07-09 09:53 | Outpatient (CLI) | payer OTHER, SELFPAY ==
--- NOTE | ~2021-07-09 | XR_ITS ---
EXAMINATION: XR hip RT min 2V DATE: 07/09/2021 10:15 INDICATION: Unilateral primary osteoarthritis, right hip. TECHNIQUE: 2 views of right hip were obtained. COMPARISON: Right hip radiographs 06/22/2020 FINDINGS: Bone alignment is normal. No fracture. There is decreased femoral head/neck offset, which m ay be seen with femoral acetabular impingement. There is mild right hip osteoarthritis. IMPRESSION: 1. Mild right hip osteoarthritis. Reviewed, dictated and finalized at location A.
== END 2021-07-09 09:54 ==
PROVIDERS: PCP Nurse Practitioner Adult Health; Visit Provider Nurse Practitioner Adult Health
DX: M16.11 Unilateral primary osteoarthritis, right hip (principal)
CPT/HCPCS: 73502

== ENCOUNTER 2021-09-13 13:17 | Outpatient (RCR) | payer OTHER, SELFPAY ==
--- NOTE | 2021-09-13 16:09 | PTOPEVAL ---
PHYSICAL THERAPY INITIAL EVALUATION. Thank you for referring Denzel Farooq to [facility].? The patient is scheduled to be seen for therapy? 2x/week for 4 weeks. Please review, sign, date and return this plan of care [email or web address]. I agree with and certify that the following plan of care is medically necessary. Referring Physician Date Attending Provider: Pepe Lennon MD *PT Outpatient Evaluation Start: 09/13/21 Evaluation Information Diagnosis R hip pain Onset ~1 year Subjective Information Pt states for about the last Query Text:As Reported By Patient/ year he has had pretty Family significant R hip pain, it feels very deep down in his hip. 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 He states his worst pain is at night when he is trying to sleep, he states he has tried sleeping in every position and it just always hurts. He states occasionally he will get back or knee pain on the R side, occasionally his left hip will hurt. He states he never has tunde hip pain. His ortho doc told him his pelvis is rotated abnormally. He states when laying on his back, sometimes he cannot even lift the weight of his leg. He described his pain as deep, heavy pressure. He occasionally does get sharp pains if he twist on his LE. Pain Assessment Right Hip(s) Reported Pain Level 1 Pain Description Heavy,Pressure,With Movement Radicular Pain Location deep, Pain Frequency Acute,Intermittent Lowest Pain Intensity 1 Greatest Pain Intensity 8 Lower Extremity Range of Motion General Lower Extremity Range of Motion WFL/Left,WFL/Right Gross Lower Extremity Range of Motion tunde hip flexion ~100 - pain Comments felt with max R hip flexion Hip Range of Motion Bilateral Hip Medial Rotation - Passive 10 Hip Lateral Rotation - Passive 10 Lower Extremity Muscle Strength Testing Gross Lower Extremity Strength *tested in supine* Tunde hip flexion 4-/5 tunde knee extension 4/5
--- NOTE | 2021-09-20 14:30 | PCPTNOTE ---
Patient called & cancelled scheduled appointment this date due to having COVID exposure and wants to get tested before returning due to feeling symptoms as well.
--- NOTE | 2021-09-26 17:18 | PCPTNOTE ---
Patient's called & cancelled scheduled appointment this date due to coming home from work with heat exhaustion symptoms throwing up.
--- NOTE | 2021-09-27 13:46 | PCPTNOTE ---
Patient's called & cancelled scheduled appointment this date due patient still recovering from heat exhaustion from yesterday.
--- NOTE | 2021-10-02 16:22 | PCPTNOTE ---
Patient did not show up for scheduled appointment this date.
--- NOTE | 2021-10-04 15:55 | PCPTNOTE ---
Patient did not show up for scheduled appointment this date; called but unable to leave voicemail due to patient not having a mailbox set up. Have notified PT about patient
--- NOTE | 2021-10-09 16:23 | PCPTNOTE ---
Patient did not show up for scheduled appointment this date; notified treating therapist about attendance policy, [facility]
--- NOTE | 2021-10-10 14:17 | PCPTNOTE ---
Attending Provider: Pepe Lennon MD Patient:Denzel Farooq Date of :1970 PHYSICAL THERAPY DISCHARGE SUMMARY. Patient has not returned for any further treatments since 09/13/2021, therefore he will be discharged at this time. Patient?s initial visit was on 09/13/2021 and he had a total of 1 visits. He has cancelled 2 appointments and no 3 showed the last 3 consecutive appointments. Attempted to call patient to notify him of discharge, he did not answer the phone and does not have a voicemail set up. Thank you for referring this patient to [facility]. Please review, sign, date and return this discharge summary JAZMIN. I have been updated about the patient's current status and I agree with discharge from the above service at this time. Referring Physician Date
== END 2021-10-10 15:27 | disposition home or self-care (01) ==
LOC: ANHPT 13:17
PROVIDERS: PCP Nurse Practitioner Adult Health; Visit Provider Family Medicine
DX: M16.11 Unilateral primary osteoarthritis, right hip (principal); M25.551 Pain in right hip
CPT/HCPCS: 97112; 97161

== ENCOUNTER 2021-10-12 14:34 | Outpatient (CLI) | payer OTHER, SELFPAY ==
--- NOTE | 2021-10-12 14:46 | ECHO_ITS ---
Patient Info Name: Denzel Farooq Age: 51 years : 1970 Gender: Male Ht: 73 in Wt: 250 lbs BSA: 2.45 m2 HR: 73 bpm BP: 143 / 107 mmHg Heart Rhythm: Sinus Rhythm Technical Quality: Fair Exam Date: 10/12/2021 2:57 PM Exam Location: [facility] Patient Status: Outpatient Admit Date: 10/12/2021 Staff Ordering Physician: Marcio Baires DO Ct Tech: Trinidad Gillespie RDCS Attending Provider: Marcio Baires DO Referring Physician: Dequan SOTO; Exam Type: CA echo doppler color flow Study Info Indications - Heart disease, unspecified Complete two-dimensional, color flow and Doppler transthoracic echocardiogram is performed. Summary 1. Complete two-dimensional, color flow and Doppler transthoracic echocardiogram is performed. 2. Left ventricular chamber dimension is normal. 3. Left ventricular systolic function is normal, estimated at 60-65%. 4. The left ventricular diastolic function is grade I diastolic dysfunction. 5. E/e' 6 is not elevated. 6. No pulmonary hypertension, estimated pulmonary arterial systolic pressure is 22 mmHg. Left Ventricle E/e' 6 is not elevated. Left ventricular chamber dimension is normal. Left ventricular systolic function is normal, estimated at 60-65%. The left ventricular diastolic function is grade I diastolic dysfunction. Right Ventricle Right ventricular systolic function is normal and with normal TAPSE 2.3 cm. Right ventricular chamber dimension is normal. Left Atria Left atrial chamber dimension is normal. Right Atria Right atrial chamber dimension is normal. Aortic Valve The aortic valve is trileaflet. There is no aortic valve stenosis. There is no aortic valve regurgitation. Pulmonic Valve There is no pulmonic regurgitation. Mitral Valve There is no mitral valve stenosis. There is no mitral valve regurgitation. Tricuspid Valve There is no tricuspid valve regurgitation. No pulmonary hypertension, estimated pulmonary arterial systolic pressure is 22 mmHg. Pericardium/Pleural There is no pericardial effusion. Inferior Vena Cava Normal inferior vena cava with >50% collapse upon inspiration consistent with normal right atrial pressure, 5 mmHg. Aorta The aortic root size at the sinus of Valsalva is normal. Left Ventricular Outflow Tract Name Value Normal LVOT 2D LVOT Diameter 2.3 cm LVOT Doppler LVOT Peak Gradient 4 mmHg LVOT Mean Gradient 2 mmHg LVOT VTI 16 cm LVOT VTI/AV VTI Ratio 0.8 LVOT Stroke Volume 68 ml LVOT CO 5.5 l/min LVOT CI 2.2 l/min/m2 Pulmonic Valve Name Value Normal RVOT Doppler RVOT Peak Gradient 2 mmHg PV D
== END 2021-10-12 14:35 | disposition home or self-care (01) ==
LOC: ANHCARD 14:38
PROVIDERS: PCP Nurse Practitioner Adult Health; Visit Provider Internal Medicine Cardiovascular Disease
DX: I51.9 Heart disease, unspecified (principal)
CPT/HCPCS: 93306

== ENCOUNTER 2022-01-04 14:43 | Emergency (ER) | payer OTHER, SELFPAY ==
--- NOTE | ~2022-01-04 | XR_ITS ---
XR lumbar spine 2-3V 01/04/2022 18:14 Indication: Low back pain Procedure: 3 views lumbar spine Comparison: No prior studies for comparison. Findings: There is mild disc narrowing at L5-S1 and to a lesser degree L2-3 and L3-4.. No acute fract ure, subluxation or dislocation. No spondylolisthesis. There is facet hypertrophy at L4-5 and L5-S1. Pedicles intact. Sacral foramen are symmetric. Impression: 1: Mild-moderate lumbar spondylosis. Reviewed, dictated and finalized at location A. Impression: 1: Mild-moderate lumbar spondylosis.
[2022-01-04 15:35] VITALS: BP 142/94; PULSE 94; RESP 18; TEMP 36.5; O2SAT 100
[2022-01-04] MEDS: SODIUM CHLORIDE 0.9% IV 1,000 ML 999 ML IV CONT (17:06)
[2022-01-04] MEDS: KETOROLAC 30 MG/ML VIAL (*BKC) IV PUSH (17:06)
[2022-01-04 17:50] LABS: Appearance Urine Clear (Clear); Bilirubin Urine Negative (Negative); Blood Urine Negative (Negative); Color Urine Yellow (Yellow); Glucose Urine UA Negative (Negative); Ketones Urine Negative (Negative); Leukocyte Esterase Ur Negative LEU/UL (Negative); Nitrate Urine Negative (Negative); Protein Urine Negative (Negative); Specific Grav Ur >= 1.030 (1.001-1.035); Urobilinogen Urine 0.2 mg/dL (<2.0)
[2022-01-04 17:52] LABS: Add Urine Microscopic? NO
--- NOTE | 2022-01-04 17:58 | ED.BACK ---
HPI - Back Pain/Injury General Chief Complaint: Back Pain/Injury Stated Complaint: back pain Time Seen by Provider: 01/04/22 16:23 History of Present Illness HPI Narrative: Patient is a 51-year-old male who presents ER with left-sided back pain and hip pain. Reports history of chronic hip pain related to arthritis. He has since developed into sciatica. He has been seen by his PCP. He has been referred to physical therapy but has been unable to attend. 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 Pain is worse with sitting as opposed to with walking. He is having pain that shooting into his left groin which happens at times. Has taken no pain medication today. No saddle anesthesia or any inability to urinate/defecate. No history of kidney stones. No blood in his urine. Related Data Home Medications Medication Instructions Recorded Confirmed meloxicam 15 mg tablet (Mobic) 15 mg PO DAILY 12/08/19 08/17/21 losartan 100 mg tablet 100 mg PO DAILY 06/29/20 08/17/21 metoprolol succinate 25 mg 25 mg PO DAILY 06/29/20 08/17/21 tablet,extended release 24 hr multivit,calc,mins-folic 240 1 tablet PO DAILY 07/18/20 08/17/21 mcg-vit K1 30 mcg-lycopene 300 mcg tablet (One-A-Day Men's Complete) Allergies Allergy/AdvReac Type Severity Reaction Status Date / Time aspirin AdvReac Intermediate NAUSEA Verified 08/17/21 15:25 Review of Systems Review of Systems: All systems reviewed & are unremarkable except as noted in HPI and below Constitutional: Constitutional: Denies chills, Denies fatigue and Denies fever(s) ENT: Denies nasal congestion and Denies sore throat Cardiovascular: Cardiovascular: Denies chest pain and Denies rapid heart rate Genitourinary: Genitourinary: Denies hematuria, Denies dysuria and Reports testicular pain Musculoskeletal: Musculoskeletal: Reports back pain, Denies arthralgias, Denies joint swelling and Reports muscle cramps Neurologic: Denies focal weakness and Denies numbness PMFSH Past Medical History Medical History Anxiety Arthritis Depression HTN (hypertension) Left hip impingement syndrome Rhabdomyolysis Vision abnormalities Surgical History Surgical History History of appendectomy History of carpal tunnel release History of mandibular surgery Family History Family History Grandparent Cerebrovascular accident Congestive heart failure Grandparent Chronic obstructive pulmonary disease Congestive heart failure Diabetes mellitus Father Hypertension Social History Social History Social History: Mr. Farooq lives at home in [place] with his and two daughters. 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 He smokes marijuana approximately 3-4x per week and reports that he uses this for pain relief. He reports alcohol use 1-2x per year. He denies other illicit substance and tobacco use. He wishes to be a full code and has designated his , Felipa Farooq, as his designated surrogate decision maker. 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 HEAD: Normocephalic, atraumatic. ENT: Mucous membranes moist. CHEST: Clear to auscultation. No respiratory distress. HEART: Regular rate and rhythm. Normal peripheral pulses. ABDOMEN: Soft, nontender, nondistended Back: No midline tenderness of the T/L-spine. Ther
[2022-01-04] MEDS: diazePAM INJ (*CRX) 10 MG/2 ML SYRINGE 5 MG IV PUSH (18:46)
== END 2022-01-04 19:43 | disposition home or self-care (01) ==
PROVIDERS: Emergency Provider Emergency Medicine; PCP Family Medicine
DX: M54.42 Lumbago with sciatica, left side (principal); M47.816 Spondylosis without myelopathy or radiculopathy, lumbar region
CPT/HCPCS: 72100; 81003; 96361; 96374; 96375; 99284; J1885; J3360; J7030

== ENCOUNTER 2022-02-08 08:12 | Emergency (ER) | payer OTHER, SELFPAY ==
--- NOTE | ~2022-02-08 | XR_ITS ---
EXAMINATION: XR hand LT min 3V DATE: 02/08/2022 08:31 INDICATION: Left hand pain post fall TECHNIQUE: Posteroanterior, oblique and lateral views of the left hand were obtained. COMPARISON: 05/14/2010 FINDINGS: Old healed diaphyseal fracture deformity of the left fourth metacarpal which appears secondarily shor tened. Chronic nonunited avulsion fracture with corticated margins at the ulnar base of the left firs t proximal phalanx. Alignment is otherwise normal. No acute fracture. There are several unchanged exo stoses with cortical and medullary continuity clearing at the radial margin of the distal radius abou t the radial margin of the neck of the first metacarpal, ulnar aspect of the diaphysis of the fifth m etacarpal and radial aspects the neck of the fourth proximal phalanx. Polyarticular osteoarthritis at the left hand, moderate severity at the second metacarpophalangeal and a few distal interphalangeal joints and mild at the remaining carpal phalangeal and interphalangeal joints. IMPRESSION: 1. Old healed fourth metacarpal diaphyseal fracture and chronic nonunited avulsion fractures at the u lnar base of the first proximal phalanx. No acute osseous abnormality. 2. Mild to moderate polyarticular osteoarthritis at the left hand. 2. 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 Reviewed, dictated and finalized at location A. IMPRESSION: 1. Old healed fourth metacarpal diaphyseal fracture and chronic nonunited avuls ion fractures at the ulnar base of the first proximal phalanx. No acute osseous abnormality. 2. Mild to moderate polyarticular osteoarthritis at the left hand. 2. Multiple osteochondromas/exostoses consistent with multiple hereditary osteo chondromatosis.
--- NOTE | 2022-02-08 08:17 | ED.UPPEXIN ---
HPI - Extremity Injury (Upper) General Chief Complaint: Extremity Injury, Upper Stated Complaint: left hand pain Time Seen by Provider: 02/08/22 08:23 Source: patient, RN notes reviewed and old records reviewed Mode of arrival: ambulatory Limitations: no limitations History of Present Illness HPI narrative: 51-year-old male presents to the [facility] with complaints of left hand pain base of the 5th finger. Patient states 2 days ago he fell landing on his hand. Swelling noted. Does have good range of motion. The patient reports multiple fractures seen hand years ago. Related Data Home Medications Medication Instructions Recorded Confirmed meloxicam 15 mg tablet (Mobic) 15 mg PO DAILY 12/08/19 08/17/21 losartan 100 mg tablet 100 mg PO DAILY 06/29/20 08/17/21 metoprolol succinate 25 mg 25 mg PO DAILY 06/29/20 08/17/21 tablet,extended release 24 hr multivit,calc,mins-folic 240 1 tablet PO DAILY 07/18/20 08/17/21 mcg-vit K1 30 mcg-lycopene 300 mcg tablet (One-A-Day Men's Complete) Allergies Allergy/AdvReac Type Severity Reaction Status Date / Time aspirin AdvReac Intermediate NAUSEA Verified 08/17/21 15:25 Review of Systems Review of Systems: All systems reviewed & are unremarkable except as noted in HPI and below Constitutional: Constitutional: Reports no additional constitutional complaints, Denies chills and Denies fever(s) Eyes: Eyes: Reports no additional eye complaints ENT: Reports system reviewed and no additional complaints, except as documented Cardiovascular: Cardiovascular: Reports no additional cardiovascular complaints Respiratory: Respiratory: Reports no additional respiratory complaints Gastrointestinal: Gastrointestinal: Reports no additional gastrointestinal complaints Musculoskeletal: Musculoskeletal: Reports as per HPI Integumentary/Breasts: Skin/Breast: Reports system reviewed and no additional complaints, except as docu Neurologic: Reports system reviewed and no additional complaints, except as documented Psychiatric: Psychiatric: Reports no additional psychiatric complaints Allergic/Immunologic: Allergic/Immunologic: Reports no additional allergic/immunologic complaints PMFSH Past Medical History Medical History Anxiety Arthritis Depression HTN (hypertension) Left hip impingement syndrome Rhabdomyolysis Vision abnormalities Surgical History Surgical History History of appendectomy History of carpal tunnel release History of mandibular surgery Family History Family History Grandparent Cerebrovascular accident Congestive heart failure Grandparent Chronic obstructive pulmonary disease Congestive heart failure Diabetes mellitus Father Hypertension Social History Social History Social History: Mr. Farooq lives at home in [place] with his and two daughters. 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 He smokes marijuana approximately 3-4x per week and reports that he uses this for pain relief. He reports alcohol use 1-2x per year. He denies other illicit substance and tobacco use. He wishes to be a full code and has designated his , Felipa Farooq, as his designated surrogate decision maker. 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 There is no relevant family hi
[2022-02-08 08:24] VITALS: BP 129/105; PULSE 72; RESP 16; TEMP 35.8; O2SAT 100
== END 2022-02-08 09:17 | disposition home or self-care (01) ==
PROVIDERS: Emergency Provider Nurse Practitioner; PCP Family Medicine
DX: S60.222A Contusion of left hand, initial encounter (principal); I10 Essential (primary) hypertension; W18.30XA Fall on same level, unspecified, initial encounter
CPT/HCPCS: 73130; 99213; G0463

== ENCOUNTER 2022-06-18 07:33 | Outpatient (CLI) | payer OTHER, SELFPAY ==
--- NOTE | ~2022-06-18 | MR_ITS ---
EXAMINATION: MR hip RT wo con DATE: 06/18/2022 08:47 INDICATION: Right hip pain. Osteoarthritis. TECHNIQUE: Magnetic resonance imaging (MRI) of the right hip was performed without intravenous contra st. COMPARISON: Right hip radiographs 07/09/2021 FINDINGS: Bones/cartilage: Bone alignment is normal. There is decreased femoral head/neck offset bilaterally, which may be seen with femoral acetabular impingement. The hip joints demonstrate tiny osteophytes. Small [id number] images of right hip demonstrates partial thickness cartilage loss. Labrum: There is a tear of the right acetabular labrum. Large [id number]-vh-[id number] images demonstrate a tear of the left acetabular labrum. Fluid: There is no hip joint effusion. There is mild bilateral trochanteric bursitis. Soft tissues: There is mild tendinopathy of the hamstring origins bilaterally. The iliopsoas tendons are normal. Th ere are partial tears of the gluteus minimus tendons bilaterally. There is mild tendinopathy of the g luteus medius tendons bilaterally. There is a right inguinal hernia containing fat. IMPRESSION: 1. Mild osteoarthritis of the hips. 2. Partial tears of the gluteus minimus tendons bilaterally. Reviewed, dictated and finalized at location A. URE ENGRAVER
== END 2022-06-18 07:34 | disposition home or self-care (01) ==
PROVIDERS: PCP Family Medicine; Visit Provider Nurse Practitioner Adult Health
DX: M16.0 Bilateral primary osteoarthritis of hip (principal)
CPT/HCPCS: 73721

== ENCOUNTER 2022-09-13 13:12 | Outpatient (CLI) | payer OTHER, SELFPAY ==
--- NOTE | ~2022-09-13 | XR_ITS ---
EXAMINATION: XR lg joint inject/asp w image DATE: 09/13/2022 14:02 INDICATION: Right hip arthritis. TECHNIQUE: A time-out was performed to verify the patient's name, date of , and procedure to b e performed. The procedure including the risks, benefits, and alternatives was discussed with the pat ient. Risks discussed included bleeding and infection. The patient understood the risks and agreed to proceed. The skin overlying the right hip joint was prepped and draped in usual sterile fashion. A nesthetic was administered with 1% lidocaine subcutaneously. A 22 G needle was advanced under fluoro scopic guidance into the joint. Subsequently, injectate consisting of 2 mL 0.5% bupivacaine and 1 mL 80 mg/mL Depo-Medrol was instilled. The needle was removed and the entry site was cleaned and dress ed. There were no immediate complications. Fluoroscopy exposure time was 0.1 minutes. The total numb er of images was 1. FINDINGS: Real-time fluoroscopy demonstrates the needle in the right hip joint. Patient's pain prior to procedure:09/21. Patient's pain following the procedure: 06/21. IMPRESSION: 1. Fluoroscopy guided right hip joint injection of local anesthetic and steroid with decrease in the patient's presenting pain. Reviewed, dictated and finalized at location A.
== END 2022-09-13 13:13 | disposition home or self-care (01) ==
PROVIDERS: PCP Family Medicine; Visit Provider Nurse Practitioner Family
DX: M16.11 Unilateral primary osteoarthritis, right hip (principal)
CPT/HCPCS: 20610; 77002; J1040

== ENCOUNTER 2022-09-23 11:24 | Emergency (ER) | payer OTHER, SELFPAY ==
--- NOTE | ~2022-09-23 | CT_ITS ---
EXAMINATION: CT lumbar spine wo con DATE: 09/23/2022 13:29 INDICATION: Back pain. Left-sided sciatica. TECHNIQUE: Computed tomography (CT) of the lumbar spine was performed without intravenous contrast. A utomated exposure control and iterative reconstruction technique were employed. The dose-length produ ct was 1359.70 mGy-cm. COMPARISON: Lumbar spine radiographs 01/04/2022 FINDINGS: L5 is a transitional segment. Bone alignment is normal. There is a hemangioma in L2 vertebr al body. There is mild chronic anterior wedging of T11-L1 vertebral bodies. There is mildly decreased disc height at L2-L3, L3-L4, and L4-L5. The following disc levels are specifically discussed: L1-L2: The disc is bulging. There is mild bilateral facet joint osteoarthritis. There is mild bilater al neural foraminal stenosis. There is mild central canal stenosis. L2-L3: The disc is bulging. There is mild bilateral facet joint osteoarthritis. There is moderate tunde ateral neural foraminal stenosis. There is mild central canal stenosis. L3-L4: The disc is bulging. There is severe bilateral facet joint osteoarthritis. There is moderate b ilateral neural foraminal stenosis. There is mild central canal stenosis. L4-L5: The disc is bulging. There is severe bilateral facet joint osteoarthritis. There is moderate b ilateral neural foraminal stenosis. There is mild central canal stenosis. There is moderate stenosis of left lateral recess. L5-S1: The disc does not extend beyond the endplate margin. There is mild bilateral facet joint hyper trophy. There is mild bilateral neural foraminal stenosis. There is no central canal stenosis. IMPRESSION: 1. Moderate lumbar spondylosis. Reviewed, dictated and finalized at location A.
[2022-09-23 11:38] VITALS: BP 116/76; PULSE 113; RESP 18; TEMP 36.1; O2SAT 100
--- NOTE | 2022-09-23 12:32 | ED.GENADULT ---
HPI - General Adult General Chief complaint: Extremity Problem,Nontraumatic Stated complaint: left leg numbness Time Seen by Provider: 09/23/22 11:48 Source: patient Mode of arrival: ambulatory Limitations: no limitations History of Present Illness HPI narrative: This is a 52-year-old male who presents to the ED with chief complaint of left lower extremity tingling and paresthesias x1 week and worse today. 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 Denies injuries but states he walks up to 8 miles a day. States he has had problems with the left hip in the past and sciatica pains in the past. Reports he is having some left lower back pain as well. Denies any fevers, chills focal weakness, saddle anesthesia, problems with urination or bowel movements. Related Data Home Medications Medication Instructions Recorded Confirmed meloxicam 15 mg tablet (Mobic) 15 mg PO DAILY 12/08/19 08/17/21 losartan 100 mg tablet 100 mg PO DAILY 06/29/20 08/17/21 metoprolol succinate 25 mg 25 mg PO DAILY 06/29/20 08/17/21 tablet,extended release 24 hr multivit,calc,mins-folic 240 1 tablet PO DAILY 07/18/20 08/17/21 mcg-vit K1 30 mcg-lycopene 300 mcg tablet (One-A-Day Men's Complete) Allergies Allergy/AdvReac Type Severity Reaction Status Date / Time aspirin AdvReac Intermediate NAUSEA Verified 09/23/22 11:54 Review of Systems Review of Systems: CONSTITUTIONAL: Denies fever, chills, or sweats. EYES: Denies visual changes, redness, or discharge. ENT: Denies rhinorrhea, congestion, sore throat, or otalgia. CARDIOVASCULAR: Denies chest pain, palpitations, or edema. RESPIRATORY: Denies cough or dyspnea. GASTROINTESTINAL: Denies abdominal pain, nausea, vomiting, or diarrhea. GENITOURINARY: Denies dysuria or hematuria. SKIN: Denies rash or itching. MUSCULOSKELETAL: See HPI NEUROLOGIC: See HPI PSYCHIATRIC: Denies anxiety or depression. [facility] Past Medical History Medical History (Updated 09/23/22 @ 14:42 by German Tinoco PA-C) Anxiety Arthritis Atypical depressive disorder Carpal tunnel syndrome Degenerative joint disease (DJD) of hip Depression Esophageal reflux HTN (hypertension) Left hip impingement syndrome Left hip pain Rhabdomyolysis Right hip pain Spermatocele Vision abnormalities Surgical History Surgical History History of appendectomy History of carpal tunnel release History of mandibular surgery Family History Family History Grandparent Cerebrovascular accident Congestive heart failure Grandparent Chronic obstructive pulmonary disease Congestive heart failure Diabetes mellitus Father Hypertension Social History Social History Social History: Mr. Farooq lives at home in [place] with his and two daughters. He is a patient carrier for [employer]. He smokes marijuana approximately 3-4x per week and reports that he uses this for pain relief. He reports alcohol use 1-2x per year. He denies other illicit substance and tobacco use. He wishes to be a full code and has designated his , Felipa Farooq, as his designated surrogate decision maker. 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 HEAD: Normocephalic, atraumatic. EYES: PERRLA and EOMI. ENT: Nares clear, no rhinorrhea or epistaxis. Mucous membranes moist. Oropharynx without tonsillar hypertrophy ex
[2022-09-23] MEDS: KETOROLAC 30 MG/ML VIAL (*BKC) IM (13:46)
[2022-09-23] MEDS: diazePAM (*CRX) 2 MG TABLET 1 MG PO (14:00)
== END 2022-09-23 14:49 | disposition home or self-care (01) ==
PROVIDERS: Emergency Provider Physician Assistant; PCP Family Medicine
DX: M54.42 Lumbago with sciatica, left side (principal); M19.90 Unspecified osteoarthritis, unspecified site; M16.9 Osteoarthritis of hip, unspecified; K21.9 Gastro-esophageal reflux disease without esophagitis; F17.210 Nicotine dependence, cigarettes, uncomplicated; M47.816 Spondylosis without myelopathy or radiculopathy, lumbar region; M51.36 Other intervertebral disc degeneration, lumbar region
CPT/HCPCS: 72131; 96372; 99284; A9270; J1885

== ENCOUNTER 2022-09-25 16:23 | Outpatient (CLI) | payer OTHER, SELFPAY ==
--- NOTE | ~2022-09-25 | MR_ITS ---
EXAMINATION: MR lumbar spine wo/w con DATE: 09/25/2022 INDICATION: Low back pain radiating down the left leg. Left foot numbness. TECHNIQUE: Magnetic resonance imaging (MRI) of the lumbar spine was performed without and with 20 mL MultiHance intravenous contrast. COMPARISON: CT lumbar spine 09/23/2022 FINDINGS: L5 is a transitional segment. Bone alignment is normal. There is mild chronic anterior wedg ing of T11 vertebral body. There is a hemangioma in L2 vertebral body. There is mildly decreased disc height at T11-T12, L2-L3, L3-L4, and L4-L5. The distal spinal cord signal intensity is normal. The c onus medullaris is at T12. The following disc levels are specifically discussed: L1-L2: The disc is bulging. There is mild bilateral facet joint osteoarthritis. There is mild bilater al neural foraminal stenosis. There is no central canal stenosis. L2-L3: The disc is bulging and has an annular fissure. There is mild bilateral facet joint osteoarthr itis. There is moderate bilateral neural foraminal stenosis. There is mild central canal stenosis. L3-L4: The disc is bulging. There is severe right and moderate left facet joint osteoarthritis. There is moderate bilateral neural foraminal stenosis. There is mild central canal stenosis. L4-L5: The disc is bulging with left subarticular zone extrusion that abuts the left L5 nerve root in left lateral recess There is severe bilateral facet joint osteoarthritis. There is moderate bilatera l neural foraminal stenosis. There is mild central canal stenosis. There is enhancing granulation tis ranjan in the epidural space, worst in left lateral recess. There is severe stenosis in left lateral rec ess. L5-S1: The disc does not extend beyond the endplate margin. There is mild bilateral facet joint hyper trophy. There is no neural foraminal stenosis. There is no central canal stenosis. IMPRESSION: 1. Moderate lumbar spondylosis. Of note, an extrusion and enhancing granulation tissue cause severe s tenosis of left lateral recess at L4-L5. Reviewed, dictated and finalized at location A. IMPRESSION: 1. Moderate lumbar spondylosis. Of note, an extrusion and enhancing granulation tissue cause severe stenosis of left lateral recess at L4-L5.
== END 2022-09-25 16:24 ==
LOC: MICIMG 16:29
PROVIDERS: PCP Nurse Practitioner Adult Health; Visit Provider Nurse Practitioner Adult Health
DX: M47.817 Spondylosis without myelopathy or radiculopathy, lumbosacral region (principal)
CPT/HCPCS: 72158

== ENCOUNTER 2023-04-20 00:21 | Emergency (ER) | payer OTHER, SELFPAY ==
[2023-04-20] VITALS (14 sets, daily range): BP systolic 125–147; BP diastolic 76–95; PULSE 69–84; RESP 13–22; TEMP 36.3; O2SAT 91–100
--- NOTE | ~2023-04-20 | XR_ITS ---
XR chest 1V portable DATE: 04/20/2023 01:40 INDICATION: Shortness of breath, cough TECHNIQUE: Portable AP chest radiographs on 04/20/2023 at 0 129 and 0130 hours COMPARISON: None FINDINGS: Heart size appears borderline, not optimally assessed on AP projection because of magnifica tion. There is pulmonary vascular redistribution which may indicate mild pulmonary venous hypertensio n. There are patchy bilateral pulmonary joints, particularly on the right suprahilar region, left perihi lar area and both lower lung zones. Consider pulmonary edema or pneumonia. No pleural effusion or pneumothorax. Mild pulmonary vascular prominence and redistribution is suggested. IMPRESSION: Borderline heart size, mild pulmonary vascular congestion; bilateral patchy scattered inf iltrates, which may be due to pulmonary edema or pneumonia Reviewed, dictated and finalized at location A. K BODY REPAIRER IMPRESSION: Borderline heart size, mild pulmonary vascular congestion; bilatera l patchy scattered infiltrates, which may be due to pulmonary edema or pneumoni a
--- NOTE | 2023-04-20 01:00 | ECG_ITS ---
Measurements Intervals [place] Rate: 64 P: 31 VA: 183 QRS: -32 QRSD: 122 T: 14 QT: 365 QTc: 379 Interpretive Statements SINUS RHYTHM LEFT AXIS DEVIATION INTRAVENTRICULAR CONDUCTION DELAY DELAYED PRECORDIAL R/S TRANSITION VOLTAGE CRITERIA FOR LVH MINIMAL Q WAVES- HIGH LATERAL LEADS BASELINE ARTIFACT- I, II, III, AVR, AVL, AVF, V6 BORDERLINE ECG NO PREVIOUS ECG AVAILABLE FOR COMPARISON Electronically Signed On 04-20-2023 9:24:53 STUDENT DEVELOPMENT COORDINATOR by Marcio Baires D.O.
[2023-04-20] MEDS: LORazepam INJ (*CRX) 2 MG/ML VIAL 1 MG IV PUSH (01:32)
[2023-04-20 01:34] LABS: Basophils Absolute Auto 0.1 K/mm3 (0.0-0.1); Basophils Percent Auto 0.6 % (0.2-1.2); Eosinophils Absolute Auto 0.3 K/mm3 (0-0.3); Eosinophils Percent Auto 2.5 % (0-4.4); Hematocrit 47.4 % (42.0-52.0); Hemoglobin 15.5 g/dL (14.0-18.0); Immature Granulocyte Absolute 0.03 K/mm3 (0.00-0.031); Immature Granulocyte Percent A 0.3 % (0-0.5); Lymphocytes Absolute Auto 2.23 K/mm3 (0.9-3.2); Lymphocytes Percent Auto 20.6 % (18.3-44.2); Mean Corpuscular HGB Conc 32.7 g/dl (32-36); Mean Corpuscular Hemoglobin 29.2 pg (26-34); Mean Corpuscular Volume 89.4 fl (80-100); Mean Platelet Volume 9.2 fl (7.4-10.4); Monocytes Percent Auto 9.5 % (2.6-8.5); Neutrophils Absolute Auto 7.2 K/mm3 (1.3-6.7); Neutrophils Percent Auto 66.5 % (45.5-73.1); Platelet Count Result 313 k/mm3 (150-375); Red Cell Distribution Width 13.8 % (11.5-14.5); White Blood Count 10.8 K/mm3 (4.5-10.0)
[2023-04-20 01:40] LABS: Appearance Urine Clear (Clear); Bilirubin Urine Negative (Negative); Blood Urine Negative (Negative); Color Urine Yellow (Yellow); Glucose Urine UA 3+ mg/dL (Negative); Ketones Urine 1+ mg/dL (Negative); Leukocyte Esterase Ur Negative LEU/UL (Negative); Nitrate Urine Negative (Negative); Protein Urine Negative (Negative); Specific Grav Ur 1.027 (1.001-1.035); Urobilinogen Urine 0.2 mg/dL (<2.0); pH Urine 6.5 (5.0-9.0)
[2023-04-20 01:44] LABS: Prothrombin Time 13.1 Seconds (11.1-14.7)
[2023-04-20 01:45] LABS: Partial Thromboplastin Time 28.9 SECONDS (22.3-36.8)
[2023-04-20 01:50] LABS: Lactic Acid Reflex 0.6 mmol/L (0.7-2.0)
[2023-04-20 01:52] LABS: Add Urine Microscopic? NO
[2023-04-20 02:00] LABS: NT Pro B Type Natriuretic Pept < 20 pg/mL (19.9-100); Troponin I < 0.012 ng/mL (0.000-0.034)
[2023-04-20 02:01] LABS: Alanine Aminotransferase 33 U/L (6-50); Albumin Level 4.5 g/dL (3.5-5.1); Alkaline Phosphatase 56 U/L (38-126); Anion Gap 9 mmol/L (8-16); Aspartate Amino Transferase 42 U/L (17-59); Bilirubin,Total 0.7 mg/dL (0.2-1.3); Blood Urea Nitrogen 15 mg/dL (9-20); Calcium 9.1 mg/dL (8.4-10.2); Carbon Dioxide 25 mmol/L (22-30); Chloride 101 mmol/L (98-107); Estimated CRCL calculation 136 ml/min; Estimated Glomerular Filt Rate > 60; Glucose 106 mg/dL (65-110); Potassium 4.2 mmol/L (3.4-5.0); Sodium 135 mmol/L (137-145)
--- NOTE | 2023-04-20 02:52 | ED.GENADULT ---
HPI - General Adult General Chief complaint: Anxiety Stated complaint: Anxiety Time Seen by Provider: 04/20/23 00:53 History of Present Illness HPI narrative: Patient is a 52-year-old gentleman who presents emergency department with chief complaint of anxiety. Patient is recently told that he had congestive heart failure on the 02 of April by Cardiology the patient states that he was started on medications diuretics and was told to wear his CPAP. Patient states every time he attempts to wear the CPAP he becomes very anxious and has not been able to sleep. Patient denies suicidal or homicidal ideation the patient denies chest pain does report that he has had some weight gain the patient states that he is getting good urine output from being on the diuretic Related Data Home Medications Medication Instructions Recorded Confirmed meloxicam 15 mg tablet (Mobic) 15 mg PO DAILY 12/08/19 08/17/21 losartan 100 mg tablet 100 mg PO DAILY 06/29/20 08/17/21 metoprolol succinate 25 mg 25 mg PO DAILY 06/29/20 08/17/21 tablet,extended release 24 hr multivit,calc,mins-folic 240 1 tablet PO DAILY 07/18/20 08/17/21 mcg-vit K1 30 mcg-lycopene 300 mcg tablet (One-A-Day Men's Complete) Allergies Allergy/AdvReac Type Severity Reaction Status Date / Time aspirin AdvReac Intermediate NAUSEA Verified 04/20/23 00:27 Review of Systems Review of Systems: A 10 system review of systems was completed on the patient and is negative except for what is stated in the HPI. Nursing and ancillary documentation was reviewed. [facility] Past Medical History Medical History Anxiety Arthritis Atypical depressive disorder Carpal tunnel syndrome Degenerative joint disease (DJD) of hip Depression Esophageal reflux HTN (hypertension) Left hip impingement syndrome Left hip pain Rhabdomyolysis Right hip pain Spermatocele Vision abnormalities Surgical History Surgical History History of appendectomy History of carpal tunnel release History of mandibular surgery Family History Family History Grandparent Cerebrovascular accident Congestive heart failure Grandparent Chronic obstructive pulmonary disease Congestive heart failure Diabetes mellitus Father Hypertension Social History Social History Social History: Mr. Farooq lives at home in [place] with his and two daughters. 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 He smokes marijuana approximately 3-4x per week and reports that he uses this for pain relief. He reports alcohol use 1-2x per year. He denies other illicit substance and tobacco use. He wishes to be a full code and has designated his , Felipa Farooq, as his designated surrogate decision maker. 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 HEAD: Normocephalic, atraumatic. EYES: PERRLA and EOMI. ENT: Nares clear, no rhinorrhea or epistaxis. Mucous membranes moist. NECK: Supple. CHEST: Clear to auscultation. No respiratory distress. HEART: Regular rate and rhythm. No murmur heard. Normal peripheral pulses. ABDOMEN: Soft, nontender, nondistended, normal active bowel sounds. EXTREMITIES: Normal range of motion. No edema. SKIN: Warm, dry, no rash. NEURO: No focal d
== END 2023-04-20 03:59 | disposition home or self-care (01) ==
PROVIDERS: Emergency Provider Emergency Medicine; PCP Nurse Practitioner Adult Health
DX: I11.0 Hypertensive heart disease with heart failure (principal); I50.9 Heart failure, unspecified; F41.9 Anxiety disorder, unspecified; M16.9 Osteoarthritis of hip, unspecified; K21.9 Gastro-esophageal reflux disease without esophagitis; I45.9 Conduction disorder, unspecified
CPT/HCPCS: 36415; 71045; 80053; 81003; 83605; 83735; 83880; 84484; 85025; 85610; 85730; 93005; 96374; 99284; J2060

== ENCOUNTER 2023-10-19 11:36 | Emergency (ER) | payer OTHER, SELFPAY ==
--- NOTE | 2023-10-19 11:38 | ED.DENTAL ---
HPI - Dental/Oral General Chief complaint: Dental/Oral Stated complaint: broken tooth Time Seen by Provider: 10/19/23 11:38 Source: patient Mode of arrival: ambulatory Limitations: no limitations History of Present Illness HPI Narrative: Denzel is a 53-year-old male patient presenting to the clinic today with complaints of a broken tooth. He reports he broke the tooth a couple months ago however this morning he woke up with swelling and pain to the right lower jaw. States he has had history of a dental abscess in the past and drained on his own. Yet gotten into a dentist as he is waiting on insurance. Denies any fever or chills. Related Data Home Medications Medication Instructions Recorded Confirmed losartan 100 mg tablet 100 mg PO DAILY 06/29/20 10/19/23 metoprolol succinate 25 mg 25 mg PO DAILY 06/29/20 10/19/23 tablet,extended release 24 hr multivit,calc,mins-folic 240 1 tablet PO DAILY 07/18/20 10/19/23 mcg-vit K1 30 mcg-lycopene 300 mcg tablet (One-A-Day Men's Complete) carvedilol 6.25 mg tablet mg 10/19/23 dextroamphetamine-amphetamine 30 10/19/23 mg tablet empagliflozin 10 mg tablet mg 10/19/23 (Jardiance) furosemide 40 mg tablet mg 10/19/23 hydrocodone 10 mg-acetaminophen tablet 10/19/23 325 mg tablet pregabalin 300 mg capsule mg 10/19/23 sacubitril 97 mg-valsartan 103 mg tablet 10/19/23 tablet (Entresto) spironolactone 25 mg tablet mg 10/19/23 testosterone cypionate 200 mg/mL mg 10/19/23 intramuscular oil Allergies Allergy/AdvReac Type Severity Reaction Status Date / Time aspirin AdvReac Intermediate NAUSEA Verified 10/19/23 11:41 Review of Systems Review of Systems: Pertinent positives per HPI. Patient denies any fever, chills, rash, headache, visual changes, dizziness, cough, runny nose, sore throat, shortness of breath, chest pain, palpitations, nausea, vomiting, diarrhea, constipation, abdominal pain, or any urinary issues. [facility] Past Medical History Medical History Anxiety Arthritis Atypical depressive disorder Carpal tunnel syndrome Degenerative joint disease (DJD) of hip Depression Esophageal reflux HTN (hypertension) Left hip impingement syndrome Left hip pain Rhabdomyolysis Right hip pain Spermatocele Vision abnormalities Surgical History Surgical History History of appendectomy History of carpal tunnel release History of mandibular surgery Family History Family History Grandparent Cerebrovascular accident Congestive heart failure Grandparent Chronic obstructive pulmonary disease Congestive heart failure Diabetes mellitus Father Hypertension Social History Social History Social History: Mr. Farooq lives at home in [place] with his and two daughters. 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 He smokes marijuana approximately 3-4x per week and reports that he uses this for pain relief. He reports alcohol use 1-2x per year. He denies other illicit substance and tobacco use. He wishes to be a full code and has designated his , Felipa Farooq, as his designated surrogate decision maker. 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 There is no relevant family
[2023-10-19 11:45] VITALS: BP 135/75; PULSE 79; RESP 18; TEMP 36.6; O2SAT 99
[2023-10-19] MEDS: cefTRIAXone 1 GM, LIDOCAINE HCL 1% LOCAL INJ 2.1 ML IM (11:59)
== END 2023-10-19 12:24 | disposition home or self-care (01) ==
PROVIDERS: Emergency Provider Nurse Practitioner Family; PCP Nurse Practitioner Adult Health
DX: K04.7 Periapical abscess without sinus (principal); M19.90 Unspecified osteoarthritis, unspecified site; K21.9 Gastro-esophageal reflux disease without esophagitis; I10 Essential (primary) hypertension
CPT/HCPCS: 41800; 96372; 99213; G0463; J0696

== ENCOUNTER 2025-02-08 00:27 | Day surgery (SDC) | payer OTHER, SELFPAY ==
[2025-01-31 08:37] VITALS: BMI 34.0
--- OUTSIDE RECORDS SUMMARY | 2025-02-08 00:30 | XMS_ITS | Clinical Summary ---
Author Organization [facility] [address] Address [address] [place] [address] Care Team Providers Care Superintendent Measurement Name Role Phone Benji Romo NP Primary Care Provide r Allergies Active Allergy Reactions Criticality Noted Date Comments Aspirin Unknown 08/11/2023 Medications testosterone cypionate (DEPO-TESTOTERON E) 200 mg/mL injection INJECT 0.5ML INTO THE MUSCLE TWICE WEEKLY ON FRIDAY AND FRIDAY FOR A TOTAL OF 200MG/WEEK. 3 Active HYDROcodone-acet aminophen (NORCO) 10-325 mg per tablet every 8 (eight) hours as needed 3 Active sildenafiL (VIAGRA) 100 mg tablet Take 1 tablet (100 mg total) by mouth daily 3 Active carvediloL (COREG) 6.25 mg tablet TAKE 1 TABLET BY MOUTH TWICE A DAY WITH MEALS 180 tablet 3 4 Active spironolactone (ALDACTONE) 25 mg tablet TAKE 1 TABLET (25 MG TOTAL) BY MOUTH DAILY. 90 tablet 3 4 03/22/20 25 Active Entresto 97-103 mg tablet TAKE 1 TABLET BY MOUTH TWICE A DAY 60 tablet 11 4 Active dextroamphetamin e-amphetamine (ADDERALL) 30 mg tablet Take 1 tablet (30 mg total) by mouth daily 5 Active pregabalin (LYRICA) 300 mg capsule Take 1 capsule (300 mg total) by mouth 2 (two) times a day 5 Active rosuvastatin (CRESTOR) 40 mg tablet Take 1 tablet (40 mg total) by mouth daily 30 tablet 11 5 05/28/19 26 Active Jardiance 10 mg tablet TAKE 1 TABLET BY MOUTH EVERY DAY 90 tablet 2 5 Active furosemide (LASIX) 40 mg tabletIndication s:LV dysfunction Take 0.5 tablets (20 mg total) by mouth daily 5 Active Active Problems Problem Noted Date Diagnosed Date WALTER (obstructive sleep apnea) 06/04/2023 Encounters Date Type Department Care Team Description 11/26/2024 8:00 AM CDT Office Visit [facility] [address] [place] [address] Noa Haq NP LV dysfunction (Primary Dx); Mild sleep apnea; Anxiety from Last 3 Months Medical History Medical History Date Comments Hypertension Family History Medical History Relation Name Comments Hypertension Father Diabetes Maternal Grandmother Relation Name Status Comments Father Maternal Grandmother Social History Tobacco Use Types Packs/Day Years Used Date Smoking Tobacco: Never Smokeless Tobacco: Never Tobacco Cessation:Counseling Given: Not Answered Sex and Gender Information Value Date Recorded Sex Assigned at Not on file Legal Sex Male 9:05 AM [employer] Gender Identity Not on file Sexual Orientation Not on file Obstetrics History Last Filed Vital Signs Vital Sign Reading Time Taken Comments Blood Pressure 106/64 11/26/2024 8:04 AM CDT Pulse 63 11/26/2024 8:04 AM CDT Temperature - - Respiratory Rate 16 05/25/2024 10:38 AM [employer] Oxygen Saturation 98% 11/26/2024 8:04 AM CDT Inhaled Oxygen Concentration - - Weight 116.1 kg (256 lb) 11/26/2024 8:04 AM CDT Height 185.4 cm (6' 1) 11/26/2024 8:04 AM CDT Body Mass Index 33.78 11/26/2024 8:04 AM CDT Plan of Treatment Health Maintenance Due Date Last Done Comments Colon Cancer Screening-Colonoscopy 1972 Depression Screening 1972 Hepatitis C Screening 1972 Prostate Cancer Screening-PSA 1972 Hepatitis B Screening 1990 Regular Well Visit/Exam 18-64 1990 Zoster Vaccine (1 of 2) 2022 Covid-19 Vaccine (2 - 2024-2 6 season) 2024 07/23/2020 Influenza Vaccine (#1) 2024 DTaP/Tdap/Td Vaccine (2 - Td or Tdap) 08/09/2029 08/10/2019 Pneumococcal vaccine <65 Aged Out No longer eligible based on patient's age to complete this topic Insurance [employer] Care Teams Superintendent Measurement Relationship Specialty Start Date End Date Benji Romo NP PCP - General Nurse Practitioner 08/13/23
[2025-02-08 09:05] VITALS: BP 127/93; PULSE 98; RESP 18; TEMP 36.3; O2SAT 97
--- NOTE | 2025-02-08 09:07 | SUR.PREOP ---
DR RINCON AND DR FARIAS BOTH NOTIFIED PT TOOK SUTAB BOWEL PREP, PT TOOK FIRST 12 TABS [id number] ON 02/07/25 AND TOOK SECOND SET OF 12 TABS WITH ADDITIONAL WATER AT [phone] THIS AM. BOTH DOCTORS WILL SEE PT PRIOR TO PROCEDURE, NO NEW ORDERS.
[2025-02-08] MEDS: LACTATED RINGERS 1,000 ML 150 ML IV CONT (09:18)
--- NOTE | 2025-02-08 10:00 | WPDANESEPPF ---
Anes - Initial Pre Proc Eval Procedure: Operation Date: 02/08/25 10:00 Proposed Procedures p Screening Colonoscopy - Anjum Bejarano DO Date/Time: 02/08/25 10:00 Surgeon: Anjum Bejarano DO Pre Op Diagnosis: Neoplasm screening Patient Data Age: 54 Gender: M Height: 1.83 m Weight: 111.4 kg Last Vital Signs Temp 97.3 F L 02/08/25 09:05 Pulse 98 02/08/25 09:05 Resp 18 02/08/25 09:05 BP 127/93 H 02/08/25 09:05 Pulse Ox 97 02/08/25 09:05 O2 Del Method Room Air 02/08/25 09:05 Allergies Allergy/AdvReac Type Severity Reaction Status Date / Time aspirin AdvReac Intermediate NAUSEA Verified 02/08/25 09:02 Home Medications ?Medication ?Instructions ?Recorded ?Confirmed ?Type losartan 100 mg tablet 100 mg PO DAILY 06/29/20 01/31/25 History metoprolol succinate 25 mg 25 mg PO DAILY 06/29/20 01/31/25 History tablet,extended release 24 hr multivit,calc,mins-folic 240 1 tablet PO DAILY 07/18/20 02/08/25 History mcg-vit K1 30 mcg-lycopene 300 mcg tablet (One-A-Day Men's Complete) hydroxyzine pamoate 25 mg capsule 25 mg PO TID PRN anxiety #20 caps 04/20/23 01/31/25 Rx carvedilol 6.25 mg tablet 6.25 mg PO BID 10/19/23 02/08/25 History dextroamphetamine-amphetamine 30 30 mg PO DAILY 10/19/23 02/08/25 History mg tablet empagliflozin 10 mg tablet 10 mg PO DAILY 10/19/23 02/08/25 History (Jardiance) furosemide 40 mg tablet 20 mg PO DAILY 10/19/23 02/08/25 History hydrocodone 10 mg-acetaminophen 1 tablet PO Q4-6H PRN pain 10/19/23 01/31/25 History 325 mg tablet pregabalin 300 mg capsule 300 mg PO DAILY 10/19/23 02/08/25 History sacubitril 97 mg-valsartan 103 mg 1 tablet PO BID 10/19/23 02/08/25 History tablet (Entresto) spironolactone 25 mg tablet 25 mg PO DAILY 10/19/23 02/08/25 History testosterone cypionate 200 mg/mL 200 mg IM WEEKLY 10/19/23 02/08/25 History intramuscular oil rosuvastatin 40 mg tablet 40 mg PO DAILY 01/31/25 02/08/25 History Patient hx anesthesia problems: none Family hx anesthesia problems: none Results Review: All pre-operative results and documents have been reviewed as part of the pre-operative evaluation. [facility] Past Medical History Medical History Degenerative joint disease (DJD) of hip Right hip pain Depression Rhabdomyolysis Left hip impingement syndrome Arthritis Anxiety Vision abnormalities Left hip pain Atypical depressive disorder Carpal tunnel syndrome Esophageal reflux Spermatocele HTN (hypertension) Surgical History Surgical History History of mandibular surgery History of carpal tunnel release History of appendectomy Family History Family History Grandparent Cerebrovascular accident Congestive heart failure Grandparent Chronic obstructive pulmonary disease Congestive heart failure Diabetes mellitus Father Hypertension Social History Social History Social History: Mr. Farooq lives at home in [place] with his and two daughters. 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 He smokes marijuana approximately 3-4x per week and reports that he uses this for pain relief. He reports alcohol use 1-2x per year. He denies other illicit substance and tobacco use. He wishes to be a full code and has designated his , Felipa Farooq, as his designated surrogate decision maker. 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 ) Neurological: alert and oriented Last oral intake: >/= 8 hours ASA classification: III Emergent: no Anesthetic plan: proceed Anesthesia type and monitoring: general GIVS and standard monitoring Results Review: All pre-operative results and documents have been reviewed as part of the pre-operative evaluation. HTN, hyperlipidemia, WALTER but noncompliant w CPAP, cannabis use daily, high amt per pt. Informed Consent: The patient's anesthetic plan and its attendant risks and benefits were discussed with the patient/family/POA. Questions were solicited and answers provided to the satisfaction of the patient/family/POA.
--- NOTE | 2025-02-08 10:15 | PM.IMHP ---
H&P: HPI History of Present Illness Date/Time: 02/08/25 10:15 Chief Complaint: Screening for colorectal cancer Narrative: This is a 54-year-old man who presents for his 1st colonoscopy. He denies any hematochezia or melena. He denies family history of colon cancer. Review of Systems Review of Systems: All systems reviewed & are unremarkable except as noted in HPI and below Constitutional: Constitutional: Denies chills, Denies fever(s), Denies headache(s) and Denies weight loss Eyes: Eyes: Denies change in vision ENT: Denies dizziness, Denies headache(s), Denies neck mass and Denies throat swelling Cardiovascular: Cardiovascular: Denies chest pain, Denies lightheadedness and Denies dyspnea Respiratory: Respiratory: Denies cough, Denies dyspnea and Denies wheezing Gastrointestinal: Gastrointestinal: Denies abdominal pain, Denies change in bowel habits, Denies nausea and Denies vomiting Genitourinary: Genitourinary: Denies hematuria and Denies dysuria Musculoskeletal: Musculoskeletal: Reports as per HPI Integumentary/Breasts: Skin/Breast: Reports as per HPI Neurologic: Denies dizziness and Denies headache(s) Allergic/Immunologic: Allergic/Immunologic: Denies throat swelling and Denies wheezing PMFSH Past Medical History Medical History Degenerative joint disease (DJD) of hip Right hip pain Depression Rhabdomyolysis Left hip impingement syndrome Arthritis Anxiety Vision abnormalities Left hip pain Atypical depressive disorder Carpal tunnel syndrome Esophageal reflux Spermatocele HTN (hypertension) Surgical History Surgical History History of mandibular surgery History of carpal tunnel release History of appendectomy Family History Family History Grandparent Cerebrovascular accident Congestive heart failure Grandparent Chronic obstructive pulmonary disease Congestive heart failure Diabetes mellitus Father Hypertension Social History Social History Social History: Mr. Farooq lives at home in [place] with his and two daughters. 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 He smokes marijuana approximately 3-4x per week and reports that he uses this for pain relief. He reports alcohol use 1-2x per year. He denies other illicit substance and tobacco use. He wishes to be a full code and has designated his , Felipa Farooq, as his designated surrogate decision maker. 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 Gender identity (if verbalized by the patient): Male Sexual Orientation (if Verbalized by the Patient): Straight or Heterosexual Spiritual care concerns: No Meds Home Medications and Allergies Home Medications ?Medication ?Instructions ?Recorded ?Confirmed ?Type losartan 100 mg tablet 100 mg PO DAILY 06/29/20 01/31/25 History metoprolol succinate 25 mg 25 mg PO DAILY 06/29/20 01/31/25 History tablet,extended release 24 hr multivit,calc,mins-folic 240 1 tablet PO DAILY 07/18/20 02/08/25 History mcg-vit K1 30 mcg-lycopene 300 mcg tablet (One-A-Day Men's Complete) hydroxyzine pamoate 25 mg capsule 25 mg PO TID PRN anxiety #20 caps 04/20/23 01/31/25 Rx carvedilol 6.25 mg tablet 6.25 mg PO BID 10/19/23 02/08/25 History dextroamphetamine-amphetamine 30 30 mg PO DAILY 10/19/23 02/08/25 History mg tablet empagliflozin 10 mg tablet 10 mg PO DAILY 10/19/23 02/08/25 History (Jardiance) furosemide 40 mg tablet 20 mg PO DAILY 10/19/23 02/08/25 History hydrocodone 10 mg-acetaminophen 1 tablet PO Q4-6H PRN pain 10/19/23 01/31/25 History 325 mg tablet pregabalin 300 mg capsule 300 mg PO DAILY 10/19/23 02/08/25 History sacubitril 97 mg-valsartan 103 mg 1 tablet PO BID 10/19/23 02/08/25 History tablet (Entresto) spironolactone 25 mg tablet 25 mg PO DAILY 10/19/23 02/08/25 History testosterone cypionate 200 mg/mL 200 mg IM WEEKLY 07/07/24 10/28/25 History intramuscular oil rosuvastatin 40 mg tablet 40 mg PO DAILY 01/31/25 02/08/25 History Allergies Allergy/AdvReac Type Severity Reaction Status Date / Time aspirin AdvReac Intermediate NAUSEA Verified 02/08/25 09:02 Vital Signs Vital Signs - 24 hr 02/08/25 09:05 Temperature 97.3 F L Pulse Rate 98 Respiratory Rate 18 Blood Pressure 127/93 H Pulse Oximetry 97 Oxygen Delivery Room Air Exam Const: General: no acute distress and alert Orientation/consciousness: patient oriented x3 HENMT: Head: normocephalic and atraumatic Ears: hearing grossly normal bilaterally Face/Nose/Sinus: Normal nares present Mouth: Yes Normal oral and palatal mucosa present Eyes: Periorbital: periorbital findings normal Sclera: sclerae normal EOM: EOMs intact bilaterally Neck: Neck: normal visual inspection, no lymphadenopathy and trachea midline Chest: Chest palpation & inspection: normal inspection of the chest Resp: Effort & Inspection: normal respiratory effort Auscultation: clear to auscultation bilaterally Cardio: Jugular venous distension: no JVD Rate: regular rate Rhythm: regular rhythm Heart sounds: S1 normal heart sound present and S2 normal heart sound present Peripheral pulses: Peripheral pulses 2+ throughout GI: Inspection: normal to inspection GI Palp: Yes Soft to palpation, No Tenderness to palpation present (GI), No Guarding due to palpation present (GI) and No Rebound tenderness present Percussion: Yes normal to percussion Auscultation: normal bowel sounds : General: Yes no CVA tenderness Back/Spine/Pelvis: Back: no CVA tenderness Neuro: General: patient oriented x3, no focal motor deficits and CN's II-XI intact bilaterally Cognition (Neuro): normal cognition Speech: normal speech Motor exam (neuro): 5/5 motor strength present throughout Extrem: General: capillary refill normal and no clubbing, cyanosis or edema Assessment and Plan Assessment and plan (1) Screening for colorectal cancer: Code(s): Z12.11 - Encounter for screening for malignant neoplasm of colon; Z12.12 - Encounter for screening for malignant neoplasm of rectum Status: Acute Assessment and Plan: I have recommended colonoscopy. I have discussed the procedure, risks, benefits, and alternatives. Questions were answered. Patient is agreeable to proceed.
--- NOTE | 2025-02-08 10:52 | S_PTH ---
PATIENT: Denzel Farooq LOC: [facility] Onofre#:[id number] AGE/SX: 54/M ROOM: RE02/08/[address]: Anjum Bejarano DO : 1970 BED: DIS: 02/08/2025 SPEC #: [id number] RECD: 02/08/25 11:39 STATUS: TOMASZ REQ #: [id number] RICHARD: 02/08/25 10:[address]: Anjum Bejarano DEPT: [facility] Surgical RECD BY: Cisco Ramos ENTERED: 02/08/25 11:40 SP TYPE: Surgical OTHR DR: Juan Mathur, PA Tissues: A - Colon Polypectomy B - Colon Polypectomy Procedures: Hematoxylin and Eosin Stain Gross and Microscopic Level 4
[2025-02-08 10:54] VITALS: BP 104/66; PULSE 70; RESP 21; O2SAT 95
[2025-02-08 11:04] VITALS: BP 135/91; PULSE 72; RESP 19; O2SAT 100
[2025-02-08 11:14] VITALS: BP 131/89; PULSE 71; RESP 22; O2SAT 99
== END 2025-02-08 11:20 | disposition home or self-care (01) ==
PROVIDERS: PCP Physician Assistant; Visit Provider Surgery
PROC: 0DJD8ZZ Inspection of Lower Intestinal Tract, Via Natural or Artificial Opening Endoscopic (ICD-10-PCS; CPT 45378; principal; 2025-02-08 10:00)
DX: Z12.11 Encounter for screening for malignant neoplasm of colon (principal); D12.3 Benign neoplasm of transverse colon; D12.4 Benign neoplasm of descending colon; K64.8 Other hemorrhoids; K57.30 Diverticulosis of large intestine without perforation or abscess without bleeding; I10 Essential (primary) hypertension; G47.33 Obstructive sleep apnea (adult) (pediatric); F32.A Depression, unspecified; F41.9 Anxiety disorder, unspecified; F32.89 Other specified depressive episodes; M62.82 Rhabdomyolysis; M16.10 Unilateral primary osteoarthritis, unspecified hip; G56.00 Carpal tunnel syndrome, unspecified upper limb; F12.90 Cannabis use, unspecified, uncomplicated; E66.9 Obesity, unspecified; Z68.33 Body mass index [BMI] 33.0-33.9, adult; Z79.84 Long term (current) use of oral hypoglycemic drugs; Z79.891 Long term (current) use of opiate analgesic; Z98.890 Other specified postprocedural states; Z82.49 Family history of ischemic heart disease and other diseases of the circulatory system
CPT/HCPCS: 45380; 88305; J7120

== ENCOUNTER 2025-03-24 08:37 | Emergency (ER) | payer OTHER, SELFPAY ==
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
[2025-03-24 08:44] VITALS: BP 117/87; PULSE 73; RESP 20; TEMP 36.3; O2SAT 96
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
[2025-03-24 10:00] VITALS: BP 103/74; PULSE 71; RESP 20; O2SAT 95
== END 2025-03-24 11:12 | disposition home or self-care (01) ==
PROVIDERS: Emergency Provider Physician Assistant; PCP Physician Assistant
DX: S16.1XXA Strain of muscle, fascia and tendon at neck level, initial encounter (principal); I10 Essential (primary) hypertension; M16.9 Osteoarthritis of hip, unspecified; K21.9 Gastro-esophageal reflux disease without esophagitis; F32.89 Other specified depressive episodes; F41.9 Anxiety disorder, unspecified; M47.812 Spondylosis without myelopathy or radiculopathy, cervical region; M19.012 Primary osteoarthritis, left shoulder; M19.011 Primary osteoarthritis, right shoulder; Z79.899 Other long term (current) drug therapy; V49.40XA Driver injured in collision with unspecified motor vehicles in traffic accident, initial encounter
CPT/HCPCS: 70450; 71250; 72125; 73030; 99284; L0140